=== PATIENT | female | born 1960 | race Caucasian/White ===

== ENCOUNTER 2018-03-02 11:10 | Emergency (ER) | payer OTHER ==
[~2018-03-02] VITALS: Ht 157.5 cm; Wt 46.3 kg
[2018-03-02 11:15] VITALS: BP 87/56
[2018-03-02] MEDS ORDERED: LIDOCAINE VISCOUS 2% 20 ML UDC ONE (11:31)
[2018-03-02] MEDS: NACL 0.9% 1,000 ML IV ONE (11:42)
[2018-03-02] MEDS: metroNIDAZOLE 500 MG/NS PREMIX 100 ML IV ONE (12:00)
[2018-03-02] MEDS: fentaNYL 0.05 MG/ML VIAL IVP ONE (12:00)
[2018-03-02 12:34] LABS: BASOPHILS % (AUTO) 0.1 % (0.0-2.0); HEMATOCRIT 38.9 % (36-48); HEMOGLOBIN 12.8 g/dL (12.0-16.0); LYMPHOCYTES # (AUTO) 0.8 K/uL (2.5-16.5); LYMPHOCYTES % (AUTO) 7.5 % (20.5-51.1); MEAN CORPUSCULAR HEMOGLOBIN 31 pg (27-31); MEAN CORPUSCULAR HGB CONC 33 g/dL (33-37); MEAN CORPUSCULAR VOLUME 92.9 fL (80-94); MONOCYTES # (AUTO) 0.8 K/uL (0.8-1.0); MONOCYTES % (AUTO) 6.7 % (1.7-9.3); NEUTROPHILS # (AUTO) 9.6 K/uL (1.8-7.7); NEUTROPHILS % (AUTO) 85.7 % (42.2-75.2); PLATELET COUNT (AUTO) 279 K/uL (140-450); RED BLOOD CELL COUNT(AUTO) 4.19 MIL/uL (4.20-5.40); RED CELL DISTRIBUTION WIDTH 17.8 % (11.6-13.7); WHITE BLOOD COUNT (AUTO) 11.2 K/uL (4.8-10.8)
[2018-03-02] MEDS: NACL 0.9% 2,000 ML IV SCH (12:35)
[2018-03-02 12:49] LABS: PROTHROMBIN TIME 11.6 secs (10.8-13.4)
[2018-03-02 13:08] LABS: ALBUMIN 2.3 g/dL (3.4-5.0); ANION GAP 17.6 (8-16); CARBON DIOXIDE 23.6 mmol/L (21-32); CREATININE 2.1 mg/dL (0.6-1.3); POTASSIUM 4.2 mmol/L (3.5-5.1); TOTAL BILIRUBIN 0.7 mg/dL (0.0-1.0)
[2018-03-02 13:34] LABS: AMYLASE 76 U/L (25-115); LIPASE 102 U/L (73-393)
[2018-03-02 14:28] VITALS: BP 93/56
[2018-03-02 14:57] LABS: APPEARANCE,URINE CLEAR (CLEAR); BILIRUBIN,URINE 2+ (NEGATIVE); BLOOD, URINE NEGATIVE (NEGATIVE); COLOR,URINE YELLOW (YELLOW); LEUKOCYTE ESTERASE ,URINE NEGATIVE (NEGATIVE); NITRITE, URINE NEGATIVE (NEGATIVE); UGLUCOSE NEGATIVE (NEGATIVE)
== END 2018-03-02 14:26 | disposition short-term general hospital (02) ==
LOC: MED 11:10 → EDBEDREQTM 11:45 → MED 14:26
DX: K56.609 Unspecified intestinal obstruction, unspecified as to partial versus complete obstruction (principal); K43.9 Ventral hernia without obstruction or gangrene; I95.9 Hypotension, unspecified; R94.31 Abnormal electrocardiogram [ECG] [EKG]; J18.1 Lobar pneumonia, unspecified organism; E46 Unspecified protein-calorie malnutrition
CPT/HCPCS: 36415; 43760; 71045; 74176; 80053; 81003; 82150; 82550; 83605; 83690; 83880; 84484; 85025; 85610; 85730; 87040; 87086; 96365; 96375; 99285; J3010; J3490; Q0092

== ENCOUNTER 2018-05-25 10:35 | Inpatient (IN) | payer OTHER ==
[~2018-05-25] VITALS: Ht 157.5 cm; Wt 67.1 kg
[2018-05-25 10:35] VITALS: BP 95/66
--- NOTE | 2018-05-25 10:35 | NUR ---
PT BIBA ALS TO BED 4
--- NOTE | 2018-05-25 10:40 | NUR ---
57yo f biba als from [facility] for with c/o aloc and hypoglycemia. Harness Inspector also report hypotensive but patient sts her blood pressure "runs low". Cap Refill < 3 seconds to all four extremities. Skin color is appriopriate for ethnicity. bilateralt lle pitting edema noted abd pitting edema noted. Pt is aox3 to person, place, and situation, not to time. Clear speech with full sentences. No facial/smile asymmetry noted. LS clear throughout, pt denies any sob. pt denies any pain. ER md conway made aware of patient status. hx--"heart problems" rx--unknown d/t patient's status
[2018-05-25] MEDS ORDERED: DEXTROSE 50% 50 ML SYR IVP ONE ×3 (10:54→11:25)
[2018-05-25] MEDS: DEXTROSE 10% 1,000 ML IV SCH ×4 (11:46→22:44)
[2018-05-25 11:58] LABS: BASOPHILS % (AUTO) 0.3 % (0.0-2.0); EOSINOPHILS % (AUTO) 0.1 % (0.0-4.0); HEMATOCRIT 34.6 % (36-48); HEMOGLOBIN 11.4 g/dL (12.0-16.0); LYMPHOCYTES # (AUTO) 0.7 K/uL (2.5-16.5); LYMPHOCYTES % (AUTO) 7.2 % (20.5-51.1); MEAN CORPUSCULAR HEMOGLOBIN 32 pg (27-31); MEAN CORPUSCULAR HGB CONC 33 g/dL (33-37); MEAN CORPUSCULAR VOLUME 97.5 fL (80-94); MONOCYTES # (AUTO) 0.3 K/uL (0.8-1.0); MONOCYTES % (AUTO) 3.2 % (1.7-9.3); NEUTROPHILS % (AUTO) 89.2 % (42.2-75.2); PLATELET COUNT (AUTO) 161 K/uL (140-450); RED BLOOD CELL COUNT(AUTO) 3.55 MIL/uL (4.20-5.40); RED CELL DISTRIBUTION WIDTH 15.5 % (11.6-13.7); WHITE BLOOD COUNT (AUTO) 10.1 K/uL (4.8-10.8)
--- NOTE | 2018-05-25 12:00 | NUR ---
lab at bedside
--- NOTE | 2018-05-25 12:06 | NUR ---
ultasound at bedside
--- NOTE | 2018-05-25 12:10 | NUR ---
lab unable to collect specimen, orion mccallum made aware
[2018-05-25] MEDS ORDERED: INSULIN LISPRO SLIDING SCALE 100 UNITS/ML VIAL SUBQ PRN (14:10)
[2018-05-25] MEDS ORDERED: NACL 0.9% 1,000 ML IV SCH (14:19)
--- NOTE | 2018-05-25 14:23 | NUR ---
unable to obtain medications due to patient's condition
--- NOTE | 2018-05-25 14:40 | NUR ---
# 14 FR Urinary catheter inserted utilizing sterile technique. Immediate return of 100 ml clear marco urine noted. Urine sample collected and sent to lab. Pt tolerated procedure well .
[2018-05-25 14:49] LABS: ALBUMIN 1.2 g/dL (3.4-5.0); ASPARTATE AMINOTRANSFERASE 85 U/L (15-37); CARBON DIOXIDE 19.2 mmol/L (21-32); CHLORIDE 104 mmol/L (98-107); CREATININE 1.2 mg/dL (0.6-1.3); GFR ARICAN-AMERICAN 59 mL/min (>90); GLUCOSE 154 mg/dL (74-106); TOTAL BILIRUBIN 0.6 mg/dL (0.0-1.0); UREA NITROGEN, BLOOD 22 mg/dL (7-18)
[2018-05-25 14:55] LABS: APPEARANCE,URINE CLEAR (CLEAR); BLOOD, URINE NEGATIVE (NEGATIVE); COLOR,URINE YELLOW (YELLOW); LEUKOCYTE ESTERASE ,URINE NEGATIVE (NEGATIVE); NITRITE, URINE NEGATIVE (NEGATIVE); UGLUCOSE TRACE (NEGATIVE)
[2018-05-25 15:03] LABS: ANION GAP 14.7 (8-16); SODIUM SERUM 135 mmol/L (136-145)
[2018-05-25 15:05] LABS: BARBITURATE, URINE NEG. ng/ml (NEG <=200); BENZODIAZEPINE, URINE NEG. ng/mL (NEG <=200); CANNABINOID, URINE NEG. ng/mL (NEG <=50); COCAINE, URINE NEG. ng/mL (NEG <=300); OPIATE, URINE POS. ng/mL (NEG <=2000); PHENCYCLIDINE SCREEN,URINE NEG. ng/mL (NEG <=25)
--- NOTE | 2018-05-25 15:05 | NUR ---
Patient will be admitted to care of dr johnson. Admited to tele. Will go to room 107a. Belongings list completed. Report to alexei alfaro.
--- NOTE | 2018-05-25 15:05 | NUR ---
RECEIVED BEDSIDE REPORT FROM ER NURSE. PATIENT IS AWAKE AND ALERTX1-2. NO SIGNS OF DISTRESS ON 2L NC. IV ON R WRIST 22G INFUSING DEXTROSE AT 60ML/HR. CLEAN, DRY AND INTACT. PATIENT HAS +4 PITTING EDEMA THROUGHOUT BODY. SKIN IS INTACT. PATIENT IS BEDBOUND. INCONTINENT. SON AND SISTER AT BEDSIDE. NOCOMPLAINTS AT THIS TIME. BED IN LOW POSITION. CALL LIGHT WITHIN REACH. WILL CONTINUE TO MONITOR
[2018-05-25 15:16] LABS: POTASSIUM 2.9 mmol/L (3.5-5.1)
[2018-05-25 15:18] LABS: BILIRUBIN,URINE NEGATIVE (NEGATIVE)
[2018-05-25 15:30] VITALS: BP 131/75
[2018-05-25] MEDS: DEXTROSE 50% 50 ML SYR IVP PRN ×3 (15:41→19:33)
[2018-05-25 16:27] LABS: HYALINE CASTS, URINE 0-10 /LPF (None Seen); RBC,URINE 3-10 (FEW) /HPF (0-5); WBC,URINE 0-5 (RARE) /HPF (0-5)
[2018-05-25] MEDS: BLOOD GLUCOSE MONITORING 1 DEV DEV FS SCH ×2 (16:30→21:04)
--- NOTE | 2018-05-25 17:00 | NUR ---
PATIENT BS RECHECK WAS 123. SON GAVE APPLE JUICE AND ORANGE JUICE. NO SIGNS OF DISTRESS. WILL CONTINUE TO MONITOR
[2018-05-25] MEDS ORDERED: POTASSIUM CHLORIDE 20% 40 MEQ/15 ML UDC GT SCH (18:30)
--- NOTE | 2018-05-25 19:00 | NUR ---
NEW IV ON L HAND 22G INFUSING POTASSIUM AT 20ML/HR. CLEAN, DRY AND INTACT. WILL CONTINUE TO MONITOR THE PATIENT.
--- NOTE | 2018-05-25 19:10 | NUR ---
GAVE BEDSIDE REPORT TO TREASURER NURSE. PATIENT MAY NEED TO GO TO ICU IF BS CONTINUES TO BE UNCONTROLLED AND B/P DROPS.
--- NOTE | 2018-05-25 19:10 | NUR ---
1700 BLOOD SUGARS ARE UNCONTROLLED. ALREADY ADMINISTERED 3 D50. ESTEFANY LAGUNAS NURSE TO CALL
[2018-05-25] MEDS: KCL 20 MEQ/WATER INJ PREMIX 100 ML IV SCH ×2 (19:13→21:04)
--- NOTE | 2018-05-25 19:30 | NUR ---
RECEIVED REPORT FROM DAY SHIFT RN FOR CONTINUITY OF CARE. PT IS LETHARGIC, ON 2L O2. PT SKIN IS INTACT. PT HAS 22G IV TO TO RIGHT WRIST AND IV TO LEFT HAND, ASYMPTOMATIC, INTACT AND PATENT. DISCUSSED PLAN OF CARE WITH PT SON, PT SON VERBALIZED UNDERSTANDING. BLOOD PRESSURE IS LOW AT THE MOMENT, OTHER VITAL SIGNS WITHIN NORMAL LIMITS. WILL PAGE [address] FREIGHT DOCTOR. NO SIGNS OF DISTRESS NOTED AT THIS TIME. BED IN LOWEST POSITION, BED ALARM ON. CALL LIGHT WITHIN REACH, WILL CONTINUE TO MONITOR.
--- NOTE | 2018-05-25 19:45 | NUR ---
SPOKE WITH DR BECKER, EXPLAINED SITUATION AND GAVE PT LATEST BLOOD SUGAR WHICH IS NOW 146.
[2018-05-25 20:00] VITALS: BP 88/47
[2018-05-25] MEDS: FUROSEMIDE 20 MG/2 ML VIAL IVP SCH (21:00)
[2018-05-25] MEDS: ACETAMINOPHEN 325 MG TAB PO PRN (21:03)
[2018-05-25] MEDS: SODIUM BICARBONATE 650 MG TAB PO SCH (21:03)
--- NOTE | 2018-05-25 21:05 | NUR ---
ADMINISTERED SCHEDULED MEDICATIONS, PT TOLERATED WELL. HELD LASIX BECAUSE BLOOD PRESSURE IS LOW, AND HELD INSULIN COVERAGE FOR BLOOD SUGAR OF 159 BECAUSE OF PT PERSISTENT HYPOGLYCEMIA JUST AN HOUR AGO.
--- NOTE | 2018-05-25 21:05 | NUR ---
TYLENOL ADMINISTERED WELL BECAUSE TEMPERATURE IS NOW 100.4.
[2018-05-25 21:17] LABS: MAGNESIUM 1.6 mg/dL (1.8-2.4); POTASSIUM 3.2 mmol/L (3.5-5.1)
[2018-05-25 21:33] LABS: PROTHROMBIN TIME 17.8 secs (10.8-13.4)
--- NOTE | 2018-05-25 21:35 | NUR ---
SPOKE TO DR BECKER REGARDING LACTIC ACID 8.3, TEMPERATURE OF 100.4, AND MAGNESIUM LEVEL OF 1.6, DR ORDERED ZOSYN 3.375 Q6H AND 2G OF MAG SULFATE IVPB.
[2018-05-25] MEDS ORDERED: MAG SULF 2000 MG/WATER PREMIX 50 ML IV ONE (22:00)
[2018-05-25] MEDS ORDERED: DEXTROSE 10% 1,000 ML IV ONE (22:17)
[2018-05-26] VITALS: BP 90/51
--- NOTE | 2018-05-26 | NUR ---
BLOOD PRESSURE DECREASED, OTHER VITAL SIGNS WITHIN NORMAL LIMITS. BLOOD SUGAR IS NOW AT 70. HELPED PT DRINK SOME JUICE, PT TOLERATED WELL, NO SWALLOWING PROBLEMS NOTED. PT STABLE, NO SIGNS OF DISTRESS NOTED AT THIS TIME. BED IN LOWEST POSITION, BED ALARM ON. CALL LIGHT WITHIN REACH, WILL CONTINUE TO MONITOR.
[2018-05-26] MEDS ORDERED: PIPERACILLIN/TAZOBACTAM 3.375 GM VIAL IV ONE ×2 (00:33→05:52)
[2018-05-26] MEDS: PIPER/TAZO 3.375GM/D5W PREMIX 50 ML IV SCH ×4 (00:42→19:04)
[2018-05-26] MEDS ORDERED: ALBUMIN HUMAN 25% 200 ML IV SCH (01:00)
--- NOTE | 2018-05-26 02:15 | NUR ---
HELPED PT DRINK A LITTLE MORE JUICE.
--- NOTE | 2018-05-26 03:56 | NUR ---
VITAL SIGNS WITHIN NORMAL LIMITS. BLOOD SUGAR IS GOOD AT 108 THIS MOMENT. PT STABLE, NO SIGNS OF DISTRESS NOTED AT THIS TIME. BED IN LOWEST POSITION, BED ALARM ON. CALL LIGHT WITHIN REACH, WILL CONTINUE TO MONITOR.
[2018-05-26 04:00] VITALS: BP 94/62
[2018-05-26] MEDS: BLOOD GLUCOSE MONITORING 1 DEV DEV FS SCH ×4 (06:06→21:05)
--- NOTE | 2018-05-26 06:07 | NUR ---
PT BLOOD SUGAR MORE STABLE NOW AT 101
--- NOTE | 2018-05-26 07:10 | NUR ---
RECEIVED PATIENT REPORT AT BEDSIDE. PATIENT IS LETHARGIC. PATIENT IS ABLE TO OPEN HER EYES AND GRUNTS BUT UNABLE TO VERBALIZE NEEDS. PATIENT ON 2L O2. O2 SAT 100 PERCENT AT THIS TIME. PATIENT ON TELE MONITORING . BED LOWERED WITH CALL LIGHT WITHIN REACH. WILL CONTINUE TO MONITOR
--- NOTE | 2018-05-26 07:28 | NUR ---
ENDORSED PT TO DAY SHIFT RN FOR CONTINUITY OF CARE. PT IN STABLE CONDITION.
--- NOTE | 2018-05-26 07:45 | NUR ---
PATIENT HAS BEEN SCREENED AND CATEGORIZED HIGH NUTRITION RISK. PATIENT WILL BE SEEN WITHIN 1-2 DAYS OF ADMISSION. 05/26/18 05/27/18 RAQUEL EMANUEL MBA, RD
[2018-05-26 08:00] VITALS: BP 95/56
--- NOTE | 2018-05-26 08:00 | NUR ---
BLOOD SUGAR CHECKED 151. PATIENT'S SON AT BEDSIDE. SON REQUESTED TO HAVE HER MOM MEDICATED FOR PAIN. PAIN MEDICATION ADMINISTERED WITH APPLESAUCE. PATIENT ABLE TO SWALLOW SLOWLY. PER SON, PATIENT'S BP NORMALLY RUNS LOW
[2018-05-26] MEDS: HYDROcodone/APAP 5/325 MG 1 TAB TAB PO PRN (08:07)
[2018-05-26] MEDS: FUROSEMIDE 20 MG/2 ML VIAL IVP SCH ×2 (09:00→20:58)
[2018-05-26] MEDS ORDERED: KCL 20 MEQ/WATER INJ PREMIX 100 ML IV SCH (10:30)
[2018-05-26] MEDS: SODIUM BICARBONATE 650 MG TAB PO SCH ×2 (10:52→21:09)
[2018-05-26] MEDS: LACTULOSE 20 GM/30 ML UDC PO SCH ×3 (10:53→18:16)
--- NOTE | 2018-05-26 10:53 | NUR ---
PATIENT RESTLESS AND RESISTING NGT INSERTION. MADE DR GRACIA AWARE. ABLE TO ADMINISTER SCHEDULED MEDICATIONS WITH APPLESAUCE
[2018-05-26 11:37] LABS: ALBUMIN 1.9 g/dL (3.4-5.0); ANION GAP 18.1 (8-16); CARBON DIOXIDE 17.6 mmol/L (21-32); TOTAL BILIRUBIN 0.8 mg/dL (0.0-1.0)
[2018-05-26 11:41] LABS: POTASSIUM 2.7 mmol/L (3.5-5.1)
--- NOTE | 2018-05-26 11:50 | NUR ---
PATIENT GIVEN BED BATH. PATIENT HAD A BM. STOOL SMALL IN AMOUNT, SOFT AND BROWN IN COLOR. PATIENT CLEANED AND REPOSITIONED FOR COMFORT
[2018-05-26 12:00] VITALS: BP 97/66
--- NOTE | 2018-05-26 12:24 | NUR ---
DOUBLE LUMEN PICC LINE INSERTED IN THE RIGHT UPPER ARM. PATIENT ASLEEP. NO S/S OF DISTRESS NOTED
[2018-05-26] MEDS ORDERED: PIPER/TAZO 3.375GM/D5W PREMIX 50 ML IV SCH (13:00)
[2018-05-26 13:24] LABS: MAGNESIUM 1.7 mg/dL (1.8-2.4); PHOSPHORUS 2.3 mg/dL (2.5-4.9)
[2018-05-26] MEDS: DEXTROSE 10% 1,000 ML IV SCH (13:27)
--- NOTE | 2018-05-26 14:18 | NUR ---
05/26/18 RD INITIAL ASSESSMENT COMPLETED PLEASE REFER TO NUTRITION ASSESSMENT UNDER CARE ACTIVITY FOR ESTIMATED NUTRITIONAL NEEDS. RD RECOMMENDATIONS: 1- RECOMMEND CONTINUE 60G CCHO DIET 2- WHEN NGT INSERT IS SUCCESSFUL, RECOMMEND TF GLUCERNA1.2 @ 50MLS/HR. START @30 AND INCREASE TOLERATED BY 10MLS/HR Q8HRS TO REACH GOAL AND HELP MEET 100% ESTIMATED NEEDS. 3- PT IS NOT A GOOD CANDIDATE FOR DIET EDUCATION 4- RD F/U 2-3 DAYS; HIGH RISK RAQUEL EMANUEL MBA, RD
[2018-05-26 16:00] VITALS: BP 92/51
[2018-05-26 16:05] LABS: BASOPHILS % (AUTO) 0.2 % (0.0-2.0); EOSINOPHILS # (AUTO) 0.3 K/uL (0-0.4); HEMATOCRIT 31.4 % (36-48); HEMOGLOBIN 10.4 g/dL (12.0-16.0); LYMPHOCYTES # (AUTO) 0.8 K/uL (2.5-16.5); MEAN CORPUSCULAR HEMOGLOBIN 32 pg (27-31); MEAN CORPUSCULAR HGB CONC 33 g/dL (33-37); MEAN CORPUSCULAR VOLUME 95.9 fL (80-94); MONOCYTES # (AUTO) 0.2 K/uL (0.8-1.0); NEUTROPHILS # (AUTO) 8.3 K/uL (1.8-7.7); NEUTROPHILS % (AUTO) 86.8 % (42.2-75.2); PLATELET COUNT (AUTO) 101 K/uL (140-450); RED BLOOD CELL COUNT(AUTO) 3.27 MIL/uL (4.20-5.40); RED CELL DISTRIBUTION WIDTH 15.2 % (11.6-13.7); WHITE BLOOD COUNT (AUTO) 9.6 K/uL (4.8-10.8)
--- NOTE | 2018-05-26 17:00 | NUR ---
INSULIN COVERAGE NOT ADMINISTERED. PATIENT REFUSING TO EAT
--- NOTE | 2018-05-26 19:30 | NUR ---
PATIENT REPORT GIVEN AT BEDSIDE TO THE ORIENTAL RUG REPAIRER NURSE
--- NOTE | 2018-05-26 19:30 | NUR ---
RECEIVED PT IN STABLE CONDITION FROM AM NURSE. PT IS ASLEEP.BUT WAKES UP NAME WAS CALLED. TALK AT TIMES. CONFUSED. WITH O22L/NC. NO DISTRESS NOTED. ON TELE MONITOR -SR. BEDREST. WITH IVF INFUSING WELL ON THE RT UPPER ARM PICC LINE. CLEAR AND PATENT. BED ON LOW POSITION, CALL LIGHT WITHIN EASY REACH. FREQUENT ROUNDS NEEDED. WILL CONTINUE TO MONITOR.
[2018-05-26 19:51] VITALS: BP 90/61
--- NOTE | 2018-05-26 21:05 | NUR ---
BLOOD SUGAR WAS CHECKED RESULT 185. INSULIN HOLD FOR PT REFUSED TO EAT. WILL CONTINUE TO MONITOR.
[2018-05-26] MEDS: POTASSIUM CHLORIDE 20% 40 MEQ/15 ML UDC GT SCH (21:09)
--- NOTE | 2018-05-26 21:50 | NUR ---
PT BLOOD CULTURE POSITIVE FOR GRAM NEGATIVE RODS. PAGED DR. GRACIA AND DR. KERR NURSE REVIEWER. CALLED BACK AFTER SECOND CALL. NO NEW ORDER. HE SAID PT ALREADY COVERED WITH ZOSYN .
--- NOTE | 2018-05-26 22:30 | NUR ---
PT ASLEEP. NO S/S OF ANY DISCOMFORT NOR DISTRESS NOTED.
[2018-05-27 00:31] VITALS: BP 95/63
--- NOTE | 2018-05-27 01:00 | NUR ---
PT HAS BEEN REPOSITIONED FOR COMFORT. HAD A LARGE BM NOTED. CLEANED AND KEPT DRY
[2018-05-27] MEDS: PIPER/TAZO 3.375GM/D5W PREMIX 50 ML IV SCH ×4 (01:27→18:21)
--- NOTE | 2018-05-27 03:00 | NUR ---
HAS BEEN REPOSITIONED FOR COMFORT . HAD TOTAL 2 LARGE BM .
[2018-05-27 04:45] VITALS: BP 98/60
[2018-05-27] MEDS: BLOOD GLUCOSE MONITORING 1 DEV DEV FS SCH ×4 (06:00→20:21)
--- NOTE | 2018-05-27 06:00 | NUR ---
BLOOD SUGAR WAS CHECKED THIS AM 126. STILL WITH IV D10 60 ML /HR.
--- NOTE | 2018-05-27 07:00 | NUR ---
DR. TORRES CAME AND SEEN PT WITH LABS ORDER FOR AM.
--- NOTE | 2018-05-27 07:10 | NUR ---
RECEIVED PATIENT REPORT AT BEDSIDE. PATIENT IS LETHARGIC. PATIENT IS ABLE TO OPEN HER EYES AND MOANS WHEN TOUCHED BUT UNABLE TO VERBALIZE NEEDS. PATIENT ON 2L O2. O2 SAT 100 PERCENT AT THIS TIME. PATIENT ON TELE MONITORING . BED LOWERED WITH CALL LIGHT WITHIN REACH. WILL CONTINUE TO MONITOR
--- NOTE | 2018-05-27 07:15 | NUR ---
ENDORSED PT IN STABLE CONDITION TO AM NURSE.
[2018-05-27] MEDS: DEXTROSE 10% 1,000 ML IV SCH (07:30)
[2018-05-27 07:57] VITALS: BP 117/74
[2018-05-27 08:00] LABS: BASOPHILS % (AUTO) 0.1 % (0.0-2.0); EOSINOPHILS % (AUTO) 0.1 % (0.0-4.0); HEMATOCRIT 29.1 % (36-48); HEMOGLOBIN 10.1 g/dL (12.0-16.0); LYMPHOCYTES % (AUTO) 7.1 % (20.5-51.1); MEAN CORPUSCULAR HEMOGLOBIN 33 pg (27-31); MEAN CORPUSCULAR HGB CONC 35 g/dL (33-37); MEAN CORPUSCULAR VOLUME 94.3 fL (80-94); MONOCYTES # (AUTO) 0.5 K/uL (0.8-1.0); MONOCYTES % (AUTO) 3.2 % (1.7-9.3); NEUTROPHILS # (AUTO) 12.7 K/uL (1.8-7.7); NEUTROPHILS % (AUTO) 89.5 % (42.2-75.2); PLATELET COUNT (AUTO) 78 K/uL (140-450); RED BLOOD CELL COUNT(AUTO) 3.09 MIL/uL (4.20-5.40); RED CELL DISTRIBUTION WIDTH 14.7 % (11.6-13.7); WHITE BLOOD COUNT (AUTO) 14.2 K/uL (4.8-10.8)
--- NOTE | 2018-05-27 08:00 | NUR ---
PATIENT REFUSING TO TAKE ANYTHING BY MOUTH
[2018-05-27 08:10] LABS: ALBUMIN 1.5 g/dL (3.4-5.0); ANION GAP 14.5 (8-16); CARBON DIOXIDE 20.3 mmol/L (21-32); CREATININE 0.8 mg/dL (0.6-1.3); TOTAL BILIRUBIN 1.4 mg/dL (0.0-1.0)
[2018-05-27 08:17] LABS: POTASSIUM 2.8 mmol/L (3.5-5.1)
[2018-05-27] MEDS: FUROSEMIDE 20 MG/2 ML VIAL IVP SCH ×2 (09:00→21:08)
--- NOTE | 2018-05-27 09:01 | NUR ---
12 FR NGT INSERTED IN THE RIGHT NARES. MADE DR GRACIA AWARE. TO PUT ORDERS FOR XRAY TO VERIFY PLACEMENT
--- NOTE | 2018-05-27 09:13 | NUR ---
TEMP RECHECKED ORALLY 99.4. NO S/S OF DISTRESS NOTED Addendum: 05/27/18 at 0913 by Arsenio Lindsey RN WRONG PATIENT
[2018-05-27] MEDS ORDERED: MAG SULF 2000 MG/WATER PREMIX 50 ML IV SCH (11:30)
[2018-05-27] MEDS ORDERED: KCL 20 MEQ/WATER INJ PREMIX 200 ML IV SCH (11:30)
[2018-05-27] MEDS: LACTULOSE 20 GM/30 ML UDC PO SCH ×3 (11:44→17:29)
[2018-05-27] MEDS: POTASSIUM CHLORIDE 20% 40 MEQ/15 ML UDC GT SCH ×2 (11:44→21:09)
[2018-05-27] MEDS: SODIUM BICARBONATE 650 MG TAB PO SCH ×2 (11:44→21:09)
[2018-05-27 12:00] VITALS: BP 115/82
[2018-05-27] MEDS: POTASSIUM CHL 20MEQ/D5-NS 1,000 ML IV SCH (13:37)
--- NOTE | 2018-05-27 15:45 | NUR ---
PATIENT AWAKE AND MORE ALERT. PATIENT VERBALIZED THAT SHE NEEDED TO VOID. PATIENT SON PRESENT AT BEDSIDE. PATIENT PLACED ON A BED NICE. PATIENT HAD A BM. STOOL SMALL IN SIZE AND AMOUNT AND LOOSE. PATIENT CLEANED AND REPOSITIONED FOR COMFORT. WILL CONTINUE TO MONITOR
[2018-05-27] MEDS: HYDROcodone/APAP 5/325 MG 1 TAB TAB PO PRN (15:56)
[2018-05-27 16:00] VITALS: BP 87/53
[2018-05-27] MEDS: MUPIROCIN CA NASAL 2% 1GM TUBE NS SCH (17:29)
[2018-05-27] MEDS: CHLORHEXADINE GLUC 2% CLOTH TP SCH (17:31)
[2018-05-27] MEDS: DEXTROSE 50% 50 ML SYR IVP PRN (17:58)
--- NOTE | 2018-05-27 18:24 | NUR ---
BLOOD SUGAR RECHECKED 118. NO S/S OF DISTRESS. PATIENT AWAKE AND ALERT
[2018-05-27] MEDS ORDERED: VANCOMYCIN PER PHARMACY MC PRN ×2 (19:15)
--- NOTE | 2018-05-27 19:30 | NUR ---
PATIENT REPORT GIVEN AT BEDSIDE. PATIENT ENDORSED IN STABLE CONDITION
--- NOTE | 2018-05-27 19:31 | NUR ---
REPORT RECEIVED FROM AM NURSE AT BEDSIDE. PT IN STABLE CONDITION. AAOX2-3. INTRODUCED SELF TO PT AND FAMILY AND BOARD UPDATED. IV SITE PATENT AND INTACT L HAND 24G SL. PT ALSO HAS A PICC LINE ON RIGHT UPPER ARM DOUBLE LUMEN RUNNING D5NS WITH 20MEQ KCL @75ML/HR. SKIN WARM, DRY, AND INTACT BUT THERE IS BRUISING IN THE BILATERAL FA, SWELLING ON BOTH LOWER LEGS, AND SACRAL REDNESS. PT ON 2L VIA NC. NG TUBE WAS PLACE BY AM SHIFT. TUBE FEEDING GOING THROUGH THE FEEDING AT 30ML/HR. BED LOCKED IN LOW POSITION. CALL ORELLANA WITHIN REACH.
[2018-05-27 20:00] VITALS: BP 104/54
--- NOTE | 2018-05-27 20:20 | NUR ---
BS 62. NO INSULIN COVERAGE NEEDED.
[2018-05-27] MEDS ORDERED: VANCOMYCIN 1,000 MG in NACL 0.9% 250 ML IV SCH (21:00)
[2018-05-27] MEDS: RIFAXIMIN 550 MG TAB PO SCH (21:00)
[2018-05-27] MEDS ORDERED: MEROPENEM 500 MG VIAL IV ONE (21:02)
--- NOTE | 2018-05-27 21:05 | NUR ---
MERREM GIVEN IVPB. LASIX GIVEN IVP. PT TOLERATED WELL. POTASSIUM GIVEN THROUGH NG TUBE. PT VOMITED SOME OF THE POTASSIUM BACK UP. DUE TO THE VOMITING BICARB GIVEN PO. PT TOLERATED PO WELL. Addendum: 05/28/18 at 0304 by Brendon Pratt RN XIFAXAN NOT GIVEN. NEW MED WAS NOT IN CASSETTE.
[2018-05-27] MEDS: MEROPENEM 500 MG in NACL 0.9% 50 ML IV SCH (21:09)
[2018-05-27] MEDS ORDERED: VANCOMYCIN 1,000 MG VIAL ONE (21:42)
--- NOTE | 2018-05-27 21:45 | NUR ---
RUSLAN ADAMS. PT TOLERATED WELL.
[2018-05-28] VITALS: BP 84/41
[2018-05-28] MEDS: HYDROcodone/APAP 5/325 MG 1 TAB TAB PO PRN ×3 (00:21→22:12)
--- NOTE | 2018-05-28 00:21 | NUR ---
NORCO GIVEN FOR PAIN 03/18. PT TOLERATED WELL.
[2018-05-28] MEDS: POTASSIUM CHL 20MEQ/D5-NS 1,000 ML IV SCH ×2 (01:15→14:36)
--- NOTE | 2018-05-28 02:00 | NUR ---
BOND UNDERWRITER'S NOTICED NG OUT OF PLACE. WILL PLACE TUBE TO ORIGINAL POSITION.
--- NOTE | 2018-05-28 03:20 | NUR ---
NG TUBE PLACED BACK TO ORIGINAL BEN BY LILY STERLING. PLACEMENT THROUGH AUSCULTATION. XRAY FOR PLACEMENT ORDERED.
[2018-05-28 04:00] VITALS: BP 91/54
[2018-05-28] MEDS ORDERED: MEROPENEM 500 MG VIAL IV ONE ×2 (05:29→21:56)
--- NOTE | 2018-05-28 05:30 | NUR ---
PUJA ADAMS. PT TOLERATING WELL.
[2018-05-28] MEDS: MEROPENEM 500 MG in NACL 0.9% 50 ML IV SCH ×3 (05:31→21:00)
[2018-05-28] MEDS: BLOOD GLUCOSE MONITORING 1 DEV DEV FS SCH ×4 (05:50→21:00)
--- NOTE | 2018-05-28 05:50 | NUR ---
BS 105. NO INSULIN COVERAGE NEEDED.
--- NOTE | 2018-05-28 05:55 | NUR ---
CHEST XRAY RESULTS IN. FINDINGS SAY TO ADVANCE THE NG TUBE ANOTHER 5 CM. NG TUBE ADVANCED. PT TOLERATED WELL. Addendum: 05/28/18 at 0612 by Brendon Pratt RN TUBE FEEDING RESTARTED.
--- NOTE | 2018-05-28 07:20 | NUR ---
REPORT GIVEN TO AM NURSE. PT IN STABLE CONDITION.
--- NOTE | 2018-05-28 07:21 | NUR ---
RECEIVED REPORT FROM THE WASHER ENGINEER HELPER NURSE AT BEDSIDE FOR CONTINUITY OF CARE. PT IS AWAKE AND ORIENTED. INTRODUCED MYSELF AND UPDATED THE BOARD. PT STATES SHE IS WET AND IS SOILED. V/S WITHIN NORMAL LIMITS. PT IS AN NG TUBE, GLUCERNA AT 30ML, CONTINUOUS FEEDING WITH 30ML OF H20 Q6. PT ALSO HAS AN NG TUBE, O2 AT 2L. SKIN INTACT. SOME REDNESS IN THE [place] AND SACRAL AREA D/T INCONTINENCE, BOWEL AND URINE. PT HAS AN IV ON L HAND 24G SL AND A PICC LINE ON RITCHIE-DOUBLE LUMEN- D5 NS KCL 20MEQ AT 100ML. PT IS BEDBOUND. EDEMA IN BLE, PITTING 1-2. CHANGED PT. HAD BM AND URINE. WILL CONTINUE TO MONITOR PT.
[2018-05-28 07:43] LABS: BASOPHILS % (AUTO) 0.3 % (0.0-2.0); HEMATOCRIT 27.2 % (36-48); HEMOGLOBIN 9.2 g/dL (12.0-16.0); LYMPHOCYTES # (AUTO) 1.1 K/uL (2.5-16.5); LYMPHOCYTES % (AUTO) 7.3 % (20.5-51.1); MEAN CORPUSCULAR HEMOGLOBIN 32 pg (27-31); MEAN CORPUSCULAR HGB CONC 34 g/dL (33-37); MEAN CORPUSCULAR VOLUME 94.8 fL (80-94); MONOCYTES # (AUTO) 0.4 K/uL (0.8-1.0); MONOCYTES % (AUTO) 2.6 % (1.7-9.3); NEUTROPHILS # (AUTO) 13.3 K/uL (1.8-7.7); NEUTROPHILS % (AUTO) 89.8 % (42.2-75.2); PLATELET COUNT (AUTO) 47 K/uL (140-450); RED BLOOD CELL COUNT(AUTO) 2.87 MIL/uL (4.20-5.40); RED CELL DISTRIBUTION WIDTH 15.4 % (11.6-13.7); WHITE BLOOD COUNT (AUTO) 14.9 K/uL (4.8-10.8)
[2018-05-28 08:00] VITALS: BP 105/60
[2018-05-28 08:30] LABS: ALBUMIN 1.2 g/dL (3.4-5.0); ANION GAP 10.6 (8-16); CARBON DIOXIDE 22.6 mmol/L (21-32); CREATININE 0.9 mg/dL (0.6-1.3); MAGNESIUM 2.4 mg/dL (1.8-2.4); POTASSIUM 4.2 mmol/L (3.5-5.1); TOTAL BILIRUBIN 1.2 mg/dL (0.0-1.0)
[2018-05-28] MEDS: POTASSIUM CHLORIDE 20% 40 MEQ/15 ML UDC GT SCH (09:19)
[2018-05-28] MEDS: LACTULOSE 20 GM/30 ML UDC PO SCH ×3 (09:19→22:09)
[2018-05-28] MEDS: FUROSEMIDE 20 MG/2 ML VIAL IVP SCH ×2 (09:20→22:12)
[2018-05-28] MEDS: SODIUM BICARBONATE 650 MG TAB PO SCH ×2 (09:20→22:11)
[2018-05-28] MEDS: RIFAXIMIN 550 MG TAB PO SCH ×2 (09:20→22:23)
--- NOTE | 2018-05-28 09:35 | NUR ---
CRUSHED MEDS AND PREPPED MEDS FOR NG TUBE FEEDING. CHECKED FOR RESIDUAL, NO RESIDUAL BUT SOME RESISTANCE. STARTED TO GIVE MEDS TO PT, PT STARTED GAGGING AND SAID SHE FELT LIKE "THROWING UP". STOPPED IN MIDDLE OF ADMINISTRATION. WILL CALL [facility] AND WILL SEE IF I CAN GET AN ORDER OF CXRY FOR PLACEMENT, STAT. MAL GRESHAM.
--- NOTE | 2018-05-28 10:10 | NUR ---
DR. GRACIA RETURNED MY CALL. OK TO ORDER STAT CXRY. CALLED RADIOLOGY TO COME AND GET STAT XRY.
--- NOTE | 2018-05-28 10:20 | NUR ---
XRY TECHS ARE HERE FOR THE CHEST XRY. WILL AWAIT RESULTS.
[2018-05-28] MEDS: VANCOMYCIN 500 MG in DEXTROSE 5% 100 ML IV SCH ×2 (11:06→23:48)
--- NOTE | 2018-05-28 11:17 | NUR ---
CONFIRMED THE NG TUBE IS IN THE STOMACH. ADMINISTERED ANOTHER 20ML'S OF MEDS. SHE STATED SHE FEELS LIKE THROWING UP. ADMINISTERED VANCO SCHEDULED. WILL CONTINUE TO MONITOR PT. WILL CONTINUE TO MONITOR PT.
[2018-05-28 12:00] VITALS: BP 99/66
--- NOTE | 2018-05-28 12:33 | NUR ---
HOLDING LACTULOSE. PT IS HAVING DIARRHEA X 3 ALREADY THIS MORNING AND HER AMMONIA LEVELS ARE NORMAL 23. WILL NOTIFY
--- NOTE | 2018-05-28 12:59 | NUR ---
CM NOTE INITIAL REVIEW FAXED TO [facility] [phone] WONG # [phone]
--- NOTE | 2018-05-28 14:32 | NUR ---
PT KEEPS CALLING OUT FOR ASSISTANCE. I GO THERE. SHE'S NOT ABLE TO VERBALIZE WHAT SHE WANTS. SHE KEEPS SAYING..."I NEED FOR YOU TO..." BUT STOPS THERE. SHE JUST KEEPS REPEATING. PT IS CONFUSED. WILL CONTINUE TO MONITOR PT.
[2018-05-28 16:00] VITALS: BP 114/66
--- NOTE | 2018-05-28 16:10 | NUR ---
PT STILL CALLING OUT "HELLO". WHEN ASKED WHAT SHE NEEDED, UNABLE TO VERBALIZE. WILL CONTINUE TO MONITOR PT.
[2018-05-28] MEDS: MUPIROCIN CA NASAL 2% 1GM TUBE NS SCH (16:19)
[2018-05-28] MEDS: CHLORHEXADINE GLUC 2% CLOTH TP SCH (16:20)
--- NOTE | 2018-05-28 18:30 | NUR ---
PT ASKED ME TO CALL HER SON, PRIYANKA. CALLED. LEFT MESSAGE ON VM. NOTIFIED PT THAT I HAD LEFT HIM A MESSAGE.
--- NOTE | 2018-05-28 19:33 | NUR ---
ENDORSED PT TO THE EMS DRIVER NURSE AT BEDSIDE FOR CONTINUITY OF CARE. PT IS IN STABLE CONDITION.
[2018-05-28 20:29] VITALS: BP 106/55
[2018-05-29 00:07] VITALS: BP 98/67
[2018-05-29] MEDS ORDERED: ZOLPIDEM 5 MG TAB PO PRN (02:25)
[2018-05-29] MEDS: ACETAMINOPHEN 325 MG TAB PO PRN (02:54)
[2018-05-29] MEDS: MEROPENEM 500 MG in NACL 0.9% 50 ML IV SCH ×3 (04:22→20:34)
[2018-05-29 04:30] VITALS: BP 101/62
[2018-05-29] MEDS: BLOOD GLUCOSE MONITORING 1 DEV DEV FS SCH ×4 (06:12→20:41)
[2018-05-29 07:12] LABS: BASOPHILS % (AUTO) 0.1 % (0.0-2.0); HEMATOCRIT 29.6 % (36-48); HEMOGLOBIN 9.9 g/dL (12.0-16.0); LYMPHOCYTES # (AUTO) 1.2 K/uL (2.5-16.5); LYMPHOCYTES % (AUTO) 9.4 % (20.5-51.1); MEAN CORPUSCULAR HEMOGLOBIN 32 pg (27-31); MEAN CORPUSCULAR HGB CONC 34 g/dL (33-37); MONOCYTES # (AUTO) 0.6 K/uL (0.8-1.0); NEUTROPHILS # (AUTO) 10.5 K/uL (1.8-7.7); NEUTROPHILS % (AUTO) 85.5 % (42.2-75.2); PLATELET COUNT (AUTO) 43 K/uL (140-450); RED BLOOD CELL COUNT(AUTO) 3.12 MIL/uL (4.20-5.40); RED CELL DISTRIBUTION WIDTH 15.2 % (11.6-13.7); WHITE BLOOD COUNT (AUTO) 12.2 K/uL (4.8-10.8)
--- NOTE | 2018-05-29 07:15 | NUR ---
RECEIVED REPORT FROM THE GEOPHYSICAL SUPPORT SPECIALIST NURSE AT BEDSIDE FOR CONTINUITY OF CARE. PT IS AWAKE. PER GEOPHYSICAL SUPPORT SPECIALIST NURSE, PT HAD NOT SLEPT ALL NIGHT LONG EVEN AFTER RECEIVING AMBIEN. PT IS STILL CONFUSED, UNABLE TO FIND WORDS. WILL TALK TO MD ABOUT POSSIBLE CT? SOME REDNESS IN THE SACRAL AREA. WILL REQUEST HYDROGUARD. NG TUBE STILL IN PLACE. GLUCERNA INFUSING AT 30ML/HR. H2O FLUSH Q 6 HR AT 50ML. PICC LINE ON RITCHIE D5 NS W/ KCL 20MEQ AT 30ML INFUSING. WILL CONTINUE WITH ABX THERAPY FOR INFECTION. V/S WITHIN NORMAL RANGE. DENIES PAIN. WILL CONTINUE TO MONITOR PT.
[2018-05-29 07:31] LABS: ALBUMIN 1.4 g/dL (3.4-5.0); ANION GAP 10.2 (8-16); CARBON DIOXIDE 22.8 mmol/L (21-32); TOTAL BILIRUBIN 0.9 mg/dL (0.0-1.0)
[2018-05-29 08:00] VITALS: BP 121/74
[2018-05-29] MEDS: FUROSEMIDE 20 MG/2 ML VIAL IVP SCH ×2 (09:23→20:41)
[2018-05-29] MEDS: LACTULOSE 20 GM/30 ML UDC PO SCH ×2 (09:42→20:34)
[2018-05-29] MEDS: SODIUM BICARBONATE 650 MG TAB PO SCH ×2 (09:43→20:35)
[2018-05-29] MEDS: RIFAXIMIN 550 MG TAB PO SCH ×2 (09:43→20:35)
--- NOTE | 2018-05-29 10:00 | NUR ---
STUDENT RN AND INSTRUCTOR GAVE MORNING MEDS VIA NG TUBE. CHECK FOR RESIDUAL-0. PT TOLERATED WELL. NO SIGNS OF DISTRESS. WILL CONTINUE TO MONITOR PT.
--- NOTE | 2018-05-29 10:39 | NUR ---
PT TAKEN TO RADIOLOGY FOR CT OF THE HEAD.
--- NOTE | 2018-05-29 11:28 | NUR ---
NOTE CONCURRENT REVIEW FAXED TO [facility] [phone] WONG PH# [phone] Addendum: 05/29/18 at 1140 by Nathalia Reyna SNF REFERRAL FAXED TO [facility] [phone] WONG # [phone]. PER [facility] CODY DAVIS PH# [phone], IF PATIENT NEEDS SNF, PATIENT CAN GO TO ONE OF THEIR CONTRACTED FACILITIES [facility], [facility], [facility], [facility].
[2018-05-29] MEDS: VANCOMYCIN 500 MG in DEXTROSE 5% 100 ML IV SCH ×2 (11:30→23:25)
--- NOTE | 2018-05-29 11:30 | NUR ---
P/T WAS HERE TO ASSESS PT. PT IS VERY WEAK. UNABLE TO AMBULATE. SAT AT SIDE OF BED, HAD TO HOLD HER BACK SO SHE DOESN'T FALL BACKWARDS. WILL CONTINUE TO MONITOR PT.
[2018-05-29] MEDS: POTASSIUM CHL 20MEQ/D5-NS 1,000 ML IV SCH (11:31)
--- NOTE | 2018-05-29 11:38 | NUR ---
ADMINISTERED VANCO AND NEW IV FLUID. PT TOLERATING WELL.
[2018-05-29 12:00] VITALS: BP 123/84
--- NOTE | 2018-05-29 14:21 | NUR ---
CAREGIVER MS. LOGAN IS HERE. PT IS VISITING. VERY PLEASED TO SEE HER. NO SIGNS OF DISTRESS. WILL CONTINUE TO MONITOR PT.
[2018-05-29] MEDS: HYDROcodone/APAP 5/325 MG 1 TAB TAB PO PRN (14:41)
--- NOTE | 2018-05-29 14:52 | NUR ---
PT C/O ROQUE. GAVE NORCO VIA NG TUBE. PT TOLERATED WELL. WILL CONTINUE TO MONITOR PT.
--- NOTE | 2018-05-29 15:15 | NUR ---
05/29/18 RD FOLLOW UP COMPLETED PLEASE REFER TO NUTRITION ASSESSMENT UNDER CARE ACTIVITY FOR ESTIMATED NUTRITIONAL NEEDS. 1. IF PT PASSES SWALLOW EVALUATION RECOMMEND CCHO 60 GM DIET WITH TEXTURE RECOMMENDED BY SPEECH THERAPIST. 2. IF PT DOES NOT PASS SWALLOW EVALUATION RECOMMEND INCREASING TUBE FEED RATE TO 50 ML/HR. -THIS WILL PROVIDE 1200 ML, 1440 KCAL AND 72 GM OF PROTEIN MEETING 100% OF ESTIMATED NEEDS. 3. FREE WATER FLUSH [address] TO FOLLOW-UP 2-3 DAYS, HIGH RISK KATHLEEN BERTRAND RD
[2018-05-29 16:00] VITALS: BP 125/69
--- NOTE | 2018-05-29 16:37 | NUR ---
PT ASKING FOR FOOD, CORN AND ICE CREAM. SWALLOW EVAL WILL BE TOMORROW. ST NOT ABLE TO COME TODAY. PT'S FRIEND WENT HOME. WILL CONTINUE TO MONITOR PT.
[2018-05-29] MEDS: MUPIROCIN CA NASAL 2% 1GM TUBE NS SCH (17:38)
[2018-05-29] MEDS: CHLORHEXADINE GLUC 2% CLOTH TP SCH (17:39)
--- NOTE | 2018-05-29 19:08 | NUR ---
ENDORSED PT TO THE SCREEN TENDER HELPER NURSE AT BEDSIDE FOR CONTINUITY OF CARE. PT IS IN STABLE CONDITION. VISITING WITH SON.
--- NOTE | 2018-05-29 19:10 | NUR ---
RECEIVED PT AWAKE WITH SON AT BEDSIDE, PT AAOX2, VERBALLY RESPONSIVE BUT EPISODES OF CONFUSION, WITH RT NARES NGT WITH TUBE FEEDING OF GLUCERNA AT 40ML/H, HOB ELEVATED AT ALL TIMES, IVF INFUSING WELL VIA RT UA PICC LINE, DRESSING DRY AND INTACT, PLAN OF CARE DISCUSSES, SAFETY MEASURES IN PLACE, ON CONTACT ISOLATION, WILL REPOSITION Q2H AND OFFLOAD PRESSURE AREAS, CALL LIGHT WITHIN REACH.
[2018-05-29 20:00] VITALS: BP 91/52
--- NOTE | 2018-05-29 20:50 | NUR ---
20ML RESIDUAL NOTED, WILL INCREASE TUBE FEEDING RATE TO 50ML/H, DUE MEDS ADMINISTERED THRU NGT AFTER PLACEMENT VERIFICATION, ALL NEEDS ANTICIPATED.
--- NOTE | 2018-05-29 21:45 | NUR ---
PT INCONTINENT OF URINE AND BM, BM WITH LOOSE BROWNISH STOOL SMALL AMOUNT NOTED, PERINEAL CARE DONE, REPOSITIONED AND OFFLOAD PRESSURE AREAS.
[2018-05-30] VITALS: BP 99/64
--- NOTE | 2018-05-30 | NUR ---
PT SLEEPING, OPEN EYES TO TOUCH, VITAL SIGNS TAKEN, BP ON THE LOW SIDE BUT STABLE, PT WENT BACK TO SLEEP, IVF INFUSING WELL, CONTINUE TO MONITOR CLOSELY.
[2018-05-30 04:00] VITALS: BP 99/57
[2018-05-30] MEDS: MEROPENEM 500 MG in NACL 0.9% 50 ML IV SCH ×3 (04:15→21:16)
[2018-05-30] MEDS: HYDROcodone/APAP 5/325 MG 1 TAB TAB PO PRN ×3 (05:28→18:38)
--- NOTE | 2018-05-30 05:30 | NUR ---
AM CARE DONE, BM WITH LARGE LOOSE STOOL, INCONTINENT CARE DONE, COMPLAINING OF PAIN, 10ML NGT RESIDUAL NOTED, MEDICATED WITH NORCO, MONITORED CLOSELY.
[2018-05-30] MEDS: DEXTROSE 50% 50 ML SYR IVP PRN (05:47)
--- NOTE | 2018-05-30 06:30 | NUR ---
BLOOD SUGAR RECHECKED AFTER D50 1 AMP GIVEN, RESULT-137, PT SLEEPING, NO SIGNS OF DISTRESS, MONITORED CLOSELY.
[2018-05-30] MEDS: BLOOD GLUCOSE MONITORING 1 DEV DEV FS SCH ×4 (06:34→21:08)
[2018-05-30 07:23] LABS: HEMATOCRIT 24.7 % (36-48); HEMOGLOBIN 8.3 g/dL (12.0-16.0); MEAN CORPUSCULAR HEMOGLOBIN 32 pg (27-31); MEAN CORPUSCULAR HGB CONC 34 g/dL (33-37); MEAN CORPUSCULAR VOLUME 96.2 fL (80-94); PLATELET COUNT (AUTO) 40 K/uL (140-450); RED BLOOD CELL COUNT(AUTO) 2.56 MIL/uL (4.20-5.40); RED CELL DISTRIBUTION WIDTH 15.4 % (11.6-13.7); WHITE BLOOD COUNT (AUTO) 9.2 K/uL (4.8-10.8)
--- NOTE | 2018-05-30 07:25 | NUR ---
PT SLEEPING, NO SIGNS OF DISTRESS, BEDSIDE REPORT GIVEN TO RN BRENDA FOR CONTINUITY OF CARE.
--- NOTE | 2018-05-30 07:26 | NUR ---
REPORT RECEIVED FROM FUR SCRAPER SHERMAN, PT SLEEPING QUIETLY IN NAD, RESP EVEN UNLABORED, SKIN WARM DRY COLOR WNL, AROUSES EASILY, IRRITABLE, NO C/O PAIN OR SOB, NO IMMEDIATE NEEDS AT THIS TIME, PLAN OF CARE REVIEWED, ALL SAFETY MEASURES IN PLACE, WILL CONTINUE TO MONITOR
[2018-05-30 07:29] LABS: ALBUMIN 1.2 g/dL (3.4-5.0); ANION GAP 7.4 (8-16); POTASSIUM 4.4 mmol/L (3.5-5.1); TOTAL BILIRUBIN 0.5 mg/dL (0.0-1.0)
[2018-05-30 07:32] LABS: PROTHROMBIN TIME 12.1 secs (10.8-13.4)
[2018-05-30 08:00] VITALS: BP 91/51
[2018-05-30] MEDS: LACTULOSE 20 GM/30 ML UDC PO SCH ×2 (09:00→21:17)
--- NOTE | 2018-05-30 09:27 | NUR ---
S.T. BEDSIDE SWALLOW EVAL COMPLETED See report for details. Pt presents with moderate orpharyngeal dysphagia c/b limited oral ROM/strength and bolus manipulation and coughing after swallow of thin liquids. Recommend: 1. Advance to mechanical soft ground diet, NECTAR THICK LIQUIDS ONLY. By spoon only, no straws. 2. Crush P.O. meds, give with puree. 3. S.T. to f/u to ensure tolerance of recommended diet textures and advance diet textures if appropriate. Time in/out: [id number] CJ [id number] NOMS LEVEL 3
[2018-05-30] MEDS: RIFAXIMIN 550 MG TAB PO SCH ×2 (09:29→21:17)
[2018-05-30] MEDS: SODIUM BICARBONATE 650 MG TAB PO SCH ×2 (09:29→21:17)
[2018-05-30] MEDS: FUROSEMIDE 20 MG/2 ML VIAL IVP SCH ×2 (09:30→21:00)
[2018-05-30 10:04] LABS: LYMPHOCYTES % (MANUAL) 8 % (20-46); MONOCYTES % (MANUAL) 6 % (5-12)
--- NOTE | 2018-05-30 10:15 | NUR ---
PHYSICAL THERAPY AT BEDSIDE
--- NOTE | 2018-05-30 10:52 | NUR ---
BED BATH GIVEN, PERICARE DONE, LINEN AND GOWN CHANGED, PT YOSEPH WELL.
[2018-05-30] MEDS ORDERED: Z-GUARD PASTE TP PRN (11:05)
[2018-05-30] MEDS: VANCOMYCIN 500 MG in DEXTROSE 5% 100 ML IV SCH ×2 (11:30→23:03)
--- NOTE | 2018-05-30 11:40 | NUR ---
CONCURRENT REVIEW FAXED TO [facility] [phone]
[2018-05-30 12:00] VITALS: BP 128/58
--- NOTE | 2018-05-30 13:26 | NUR ---
Analog Device Designer Note: I called patient's son Giovani Schmitt yesterday 05/29/18 and today 05/30/18 to discuss patient's discharge plan, no answer, left messages. I faxed inquiries to the following snfs: [facility] Per Katina from [facility] , no beds available today, nor will they have beds tomorrow 05/31/18 [facility] Addendum: 05/30/18 at 5891 by Padma Andino SS Per Opal from [facility] , they don't have any beds available today, unable to accept.
--- NOTE | 2018-05-30 14:09 | NUR ---
NGT FEEDING STOPPED AT THIS TIME, NGT REMAINS CLAMPED IN RIGHT NARE FOR NOW, PUREE DIET ORDER RECEIVED FROM DR GRACIA, WILL ASSIST PT WITH FEEDING.
--- NOTE | 2018-05-30 14:50 | NUR ---
PERICARE DONE, PAD CHANGED, PT YOSEPH WELL, WILL CONTINUE TO MONTIOR.
[2018-05-30 16:00] VITALS: BP 128/62
--- NOTE | 2018-05-30 16:50 | NUR ---
BLOOD SUGAR 68, THICK APPLE JUICE GIVEN, WILL MONITOR BLOOD SUGAR
[2018-05-30] MEDS: CHLORHEXADINE GLUC 2% CLOTH TP SCH (17:40)
[2018-05-30] MEDS: MUPIROCIN CA NASAL 2% 1GM TUBE NS SCH (17:59)
--- NOTE | 2018-05-30 18:10 | NUR ---
YOSEPH MASHED POTATO WITH GRAVY ONLY FROM [facility] WITH ASSIST.
[2018-05-30] MEDS: POTASSIUM CHL 20MEQ/D5-NS 1,000 ML IV SCH (18:33)
--- NOTE | 2018-05-30 19:20 | NUR ---
REPORT GIVEN TO EXTERNAL RELATIONS MANAGER NURSE, PT IN STABLE CONDITION
--- NOTE | 2018-05-30 19:25 | NUR ---
RECEIVED PT IN STABLE CONDITION FROM AM NURSE. PT IS BEDREST. AWAKE, ALERT ,ORIENTED X2-3. WITH PERIODS OF CONFUSION. HAS GENERALIZED WEAKNESS. ON TELE MONITOR -SR. HAS NON PITTING EDEMA ON BOTH BUE AND BLE. FAMILY MEMBERS AT BEDSIDE. GIVEN TEACHING ON CONTACT PRECAUTION. VERBALIZED UNDERSTANDING. IVF INFUSING WELL ON THE RT UPPER PICC LINE. CLEAR AND PATENT. STILL WITH NGT THAT IS CLAMPED . FREQUENT ROUNDS NEEDED. BED ON LOWEST POSITION. CALL LIGHT PLACED WITHIN EASY REACH. WILL CONTINUE TO MONITOR.
[2018-05-30 20:00] VITALS: BP 99/65
--- NOTE | 2018-05-30 21:08 | NUR ---
BLOOD SUGAR WAS CHECKED 77. ENCOURAGED TO TAKE SOME APPLE SAUCE AND JUICE. ABLE TO TOLERATE 2/3 CUP OF APPLE SAUCE AND FEW SPOONS OF THICKENED APPLE JUICE. REFUSED TO TAKE MORE . PT WITH CONTINUOUS IVF. WILL CONTINUE TO MONITOR.
--- NOTE | 2018-05-30 21:30 | NUR ---
PT REPOSITIONED FOR COMFORT. HAD A MODERATE LOOSE STOOL. SACRAL AREA REDNESS APPLIED WITH Z GUARD NEEDED.
[2018-05-31 00:45] VITALS: BP 91/56
--- NOTE | 2018-05-31 01:00 | NUR ---
PT WITH REDNESS/EXCORIATION ON THE SACRAL AREA. DRESSING IN PLACED.
[2018-05-31] MEDS: POTASSIUM CHL 20MEQ/D5-NS 1,000 ML IV SCH ×2 (01:33→01:34)
[2018-05-31] MEDS: DEXTROSE 50% 50 ML SYR IVP PRN ×2 (02:24→16:25)
--- NOTE | 2018-05-31 02:24 | NUR ---
BLOOD SUGAR RECHECKED FOR EARLIER BS ONLY 77 AND PT DIDN'T REALLY TAKE ENOUGH HS SNACK. BLOOD SUGAR ONLY 59. PT IS ASLEEP. AROUSE WHEN NAME CALLED. DEXTROSE 50 % 50 ML GIVEN IVP ORDERED . WILL CONTINUE TO MONITOR , RECHECK BLOOD SUGAR LATER.
--- NOTE | 2018-05-31 04:00 | NUR ---
RECHECKED BLOOD SUGAR/ RESULT ONLY 78 AFTER THE D50 IVP GIVEN 0224. GAVE THROUGH NGT @250 ML OF JUICE . TOLERATED WELL. WILL CONTINUE TO MONITOR.
[2018-05-31 04:15] VITALS: BP 93/50
[2018-05-31] MEDS: MEROPENEM 500 MG in NACL 0.9% 50 ML IV SCH ×3 (04:33→21:20)
[2018-05-31] MEDS: HYDROcodone/APAP 5/325 MG 1 TAB TAB PO PRN ×2 (05:49→09:39)
[2018-05-31] MEDS: BLOOD GLUCOSE MONITORING 1 DEV DEV FS SCH ×4 (05:54→21:19)
--- NOTE | 2018-05-31 05:54 | NUR ---
LATEST BLOOD SUGAR AT THIS TIME IS 98. WILL CONTINUE TO MONITOR.
[2018-05-31 06:41] LABS: BASOPHILS % (AUTO) 0.1 % (0.0-2.0); EOSINOPHILS % (AUTO) 0.1 % (0.0-4.0); HEMATOCRIT 25.8 % (36-48); HEMOGLOBIN 8.5 g/dL (12.0-16.0); LYMPHOCYTES # (AUTO) 1.2 K/uL (2.5-16.5); LYMPHOCYTES % (AUTO) 12.9 % (20.5-51.1); MEAN CORPUSCULAR HEMOGLOBIN 32 pg (27-31); MEAN CORPUSCULAR HGB CONC 33 g/dL (33-37); MEAN CORPUSCULAR VOLUME 97.2 fL (80-94); MONOCYTES # (AUTO) 0.7 K/uL (0.8-1.0); MONOCYTES % (AUTO) 7.4 % (1.7-9.3); NEUTROPHILS # (AUTO) 7.5 K/uL (1.8-7.7); NEUTROPHILS % (AUTO) 79.5 % (42.2-75.2); PLATELET COUNT (AUTO) 60 K/uL (140-450); RED BLOOD CELL COUNT(AUTO) 2.66 MIL/uL (4.20-5.40); RED CELL DISTRIBUTION WIDTH 15.4 % (11.6-13.7); WHITE BLOOD COUNT (AUTO) 9.4 K/uL (4.8-10.8)
[2018-05-31 06:56] LABS: ANION GAP 5.7 (8-16); CARBON DIOXIDE 25.8 mmol/L (21-32); CREATININE 0.9 mg/dL (0.6-1.3); POTASSIUM 4.5 mmol/L (3.5-5.1)
--- NOTE | 2018-05-31 07:15 | NUR ---
ENDORSED PT IN STABLE CONDITION TO AM NURSE FOR CONTINUITY OF CARE.
--- NOTE | 2018-05-31 07:17 | NUR ---
RECEIVED REPORT FROM LENS BLOCKER NURSE. PT ASLEEP IN BED, RESPIRATIONS EVEN & UNLABORED, NO SIGNS OF DISTRESS. FALL PRECAUTIONS IN PLACE. CALL LIGHT WITHIN REACH. WILL CONTINUE TO MONITOR.
[2018-05-31 08:00] VITALS: BP 91/62
--- NOTE | 2018-05-31 08:44 | NUR ---
CM NOTE CONCURRENT REVIEW FAXED TO [facility] [phone] WONG # [phone]
[2018-05-31] MEDS: LACTULOSE 20 GM/30 ML UDC PO SCH ×2 (08:54→21:20)
[2018-05-31] MEDS: FUROSEMIDE 20 MG/2 ML VIAL IVP SCH ×2 (08:54→21:21)
[2018-05-31] MEDS: SODIUM BICARBONATE 650 MG TAB PO SCH (08:54)
[2018-05-31] MEDS: RIFAXIMIN 550 MG TAB PO SCH ×2 (08:54→21:20)
--- NOTE | 2018-05-31 09:00 | NUR ---
AM MEDS GIVEN. PT ABLE TO TAKE PO MEDS CRUSHED WITH CHOCOLATE PUDDING. CONTINUE TO HAVE POOR APPETITE, DECLINES ALTERNATE BREAKFAST/SNACKS WHEN OFFERED. AM CARE PROVIDED.
--- NOTE | 2018-05-31 11:05 | NUR ---
Manager Utilization Note: I called and spoke with patient's son Giovani Schmitt , I explained to him that it is important that he speaks with MD and nursing staff regarding patient's plan of care. He acknowledged that he received my previous voicemails that I left him. He stated he hadn't had time to call me back. I informed him our charge nurse Marisa would call him right back and discuss plan of care. He verbalized understanding. Per charge nurse Marisa, she will call him soon.
[2018-05-31] MEDS: VANCOMYCIN 500 MG in DEXTROSE 5% 100 ML IV SCH ×2 (11:21→23:40)
[2018-05-31 12:00] VITALS: BP 88/55
--- NOTE | 2018-05-31 12:05 | NUR ---
DR Bharath [place] AT BEDSIDE FOR EVAL
--- NOTE | 2018-05-31 12:54 | NUR ---
CM NOTE PER IE CAROLYN CAMERONA PH# [phone], FOR ACCEPTING SNF AUTH# [id number], FOR [facility] AUTH# [id number]
--- NOTE | 2018-05-31 14:44 | NUR ---
ST NOTE Discussed pt with nursing and cleared for ST Tx. Attempted puree and NTL trials; however, pt refused all trials despite beinga lert and able to verbalize. Informed nursing of refusal and nursing has seen similar behavior. Did not eat lunch meal. ST to follow up/attempt again next day.
--- NOTE | 2018-05-31 15:03 | NUR ---
Precision Layout Worker Note: prison facility follow up: Per Aislinn from [facility] , her alliance director will review inquiry and Aislinn will call me back, Aislinn is aware patient will be getting a G-tube today. I called the admission coordinator from [facility] , no answer, left message. Per Chapin from [facility] her alliance director will review inquiry and Chapin will call me back, Chapin is aware patient will be getting a G-tube today.
--- NOTE | 2018-05-31 15:06 | NUR ---
PHYSICAL THERAPY CO-SIGN The Physical Therapy Progress Notes documented by Switch Box Installer have been reviewed. I CONCUR W/CAREER DEVELOPMENT ASSOCIATE NOTE; CONT PER TX PLAN Reviewed/Co-Signed by: Sindhu Williamson, PT Documentation Done by: DIALLO JEROME PTA Addendum: 05/31/18 at 1507 by Sindhu Williamson PT Amended: Links added.
--- NOTE | 2018-05-31 15:15 | NUR ---
1190 SON CALLED NURSING UNIT AND DCM DISCUSSED WITH HIM PT NOT EATING AT THIS TIME AND NEEDS TO HAVE WALLPAPER REMOVER STEAM SOURCE OF NUTRITION WHICH WOULD BE A GTUBE. SON STATED HE UNDERSTOOD. DR GRACIA AT NURSING STATION AND SPOKE TO SON REGARDING GTUBE PLACEMENT AND PER DR GRACIA SON WAS IN AGREEMENT.
--- NOTE | 2018-05-31 15:40 | NUR ---
05/31/18 RD FOLLOW UP COMPLETED PLEASE REFER TO NUTRITION ASSESSMENT UNDER CARE ACTIVITY FOR ESTIMATED NUTRITIONAL NEEDS. 1. CONTINUE CCHO 60 GM PUREE WITH NECTAR THICK DIET TOLERATED 2. RECOMMEND ALONG WITH ORAL DIET, GLUCERNA @45 ML/HR WITH 80 ML WATER FLUSH Q4H -THIS WILL PROVIDE 1080 ML, 1296 KCAL, 65 GM PROTEIN MEETING 90% OF ESTIMATED KCAL NEEDS AND 100% OF PROTEIN NEEDS. 3. RD TO FOLLOW-UP 2-3 DAYS, HIGH RISK KATHLEEN BERTRAND RD
[2018-05-31 16:00] VITALS: BP 102/61
--- NOTE | 2018-05-31 16:25 | NUR ---
BEDSIDE GLUCOSE 26, THEN REPEAT 56, D50% GIVEN PER ODER, PT RESTING QUIETLY IN NAD, AWAKE, SPEAKS CLEARLY AND REQUESTS HER LEGS TO BE RE-POSITIONED, WILL RE-CHECK GLUCOSE
[2018-05-31] MEDS: CHLORHEXADINE GLUC 2% CLOTH TP SCH (16:34)
--- NOTE | 2018-05-31 17:44 | NUR ---
BLOOD SUGAR 87 AFTER D50, NG FEEDING STARTED PER ORDER, GLUCERNA 1.2 AT 30ML/HR 80ML H2O/Q4H, WILL CHECK RESIDUAL THEN INCREASE TO 45ML/HR..
[2018-05-31] MEDS: MUPIROCIN CA NASAL 2% 1GM TUBE NS SCH (17:59)
--- NOTE | 2018-05-31 19:10 | NUR ---
REPORT GIVEN TO ULTRASOUND MANAGER NURSE FOR CONTINUITY OF CARE. PT IN BED, AWAKE, NO SIGNS OF DISTRESS.
--- NOTE | 2018-05-31 19:15 | NUR ---
RECEIVED PT IN STABLE CONDITION FROM AM NURSES. AWAKE,ALERT AND ORIENTED X3. WITH PERIODS OF CONFUSION. ON TELE MONITOR. BEDREST. HAS GENERALIZED WEAKNESS. HAS IVF INFUSING WELL ON THE RT UPPER ARM PICC LINE. NGT FEEDING INFUSING A 35 ML /HR. NO RESIDUAL NOTED. HAS INCONTINENT DERMATITIS ON SACRUM/AZAEL AREA, DRESSING INTACT. BED ON LOW POSITION. CALL LIGHT PLACED WITHIN EASY REACH AND FREQUENT ROUNDS NEEDED. WILL CONTINUE TO MONITOR.
[2018-05-31 19:50] VITALS: BP 110/65
--- NOTE | 2018-05-31 21:19 | NUR ---
BLOOD SUGAR WAS CHECKED RESULT 70. PT IS AWAKE,ALERT AN ORIENTED X3. GAVE SOME JUICE SLOWLY THROUGH THE NGT AND FEEDING STILL ONGOING. WILL CONTINUE TO MONITOR.
--- NOTE | 2018-05-31 21:42 | NUR ---
BLOOD SUGAR WAS 260. INSULIN COVERAGE GIVEN SUBQ ON THE RT ARM. PT HAD HS SNACK. WILL CONTINUE TO MONITOR. Addendum: 05/31/18 at 2334 by Krissy Menjivar RN CANCEL ABOVE NOTES, WRONG PT.
[2018-06-01] VITALS: BP 103/63
--- NOTE | 2018-06-01 01:00 | NUR ---
MADE ROUNDS. PT ASLEEP. NO S/S OF ANY DISCOMFORT NOR PAIN NOTED.
--- NOTE | 2018-06-01 02:06 | NUR ---
PT BLOOD SUGAR TENDS TO GO DOWN,RECHECKED AT THIS TIME RESULT 91. NGT FEEDING ON AND IVF INFUSING WELL.
--- NOTE | 2018-06-01 03:00 | NUR ---
MADE ROUNDS. PT ASLEEP. NO DISTRESS NOTED. WILL CONTINUE TO MONITOR.
[2018-06-01] MEDS: MEROPENEM 500 MG in NACL 0.9% 50 ML IV SCH ×2 (04:24→14:15)
[2018-06-01 04:33] VITALS: BP 111/66
--- NOTE | 2018-06-01 05:00 | NUR ---
OPT HAS BEEN REPOSITIONED FOR COMFORT.HAD X3 SMALL AMOUNT SOFT BM. KEPT CLEAN AND DRY .Z GUARD APPLIED THEN COVER WITH DRESSING ON SACRAL AREA.
[2018-06-01] MEDS: BLOOD GLUCOSE MONITORING 1 DEV DEV FS SCH ×2 (06:11→11:30)
--- NOTE | 2018-06-01 06:14 | NUR ---
BLOOD SUGAR THIS AM 99. TOLERATING NGT FEEDING . NO RESIDUAL NOTED. FEEDING UP TO 45ML /HR.
--- NOTE | 2018-06-01 07:10 | NUR ---
ENDORSED PT IN STABLE CONDITION TO AM NURSE.
--- NOTE | 2018-06-01 07:12 | NUR ---
RECEIVED REPORT FROM HAIRCUTTER NURSE. PT LYING COMFORTABLY IN BED, VERBALLY RESPONSIVE, NO SIGNS OF DISTRESS, RESPIRATIONS EVEN & UNLABORED. FALL PRECAUTIONS IN PLACE. WILL CONTINUE TO MONITOR.
[2018-06-01 07:44] LABS: BASOPHILS % (AUTO) 0.2 % (0.0-2.0); EOSINOPHILS % (AUTO) 0.1 % (0.0-4.0); HEMOGLOBIN 8.6 g/dL (12.0-16.0); LYMPHOCYTES # (AUTO) 1.5 K/uL (2.5-16.5); LYMPHOCYTES % (AUTO) 17.5 % (20.5-51.1); MEAN CORPUSCULAR HEMOGLOBIN 32 pg (27-31); MEAN CORPUSCULAR HGB CONC 33 g/dL (33-37); MEAN CORPUSCULAR VOLUME 95.9 fL (80-94); MONOCYTES # (AUTO) 0.8 K/uL (0.8-1.0); MONOCYTES % (AUTO) 8.7 % (1.7-9.3); NEUTROPHILS # (AUTO) 6.4 K/uL (1.8-7.7); NEUTROPHILS % (AUTO) 73.5 % (42.2-75.2); PLATELET COUNT (AUTO) 92 K/uL (140-450); RED BLOOD CELL COUNT(AUTO) 2.71 MIL/uL (4.20-5.40); RED CELL DISTRIBUTION WIDTH 15.4 % (11.6-13.7); WHITE BLOOD COUNT (AUTO) 8.8 K/uL (4.8-10.8)
[2018-06-01 08:00] VITALS: BP 106/65
[2018-06-01 08:18] LABS: ALBUMIN 1.3 g/dL (3.4-5.0); ANION GAP 8.2 (8-16); CREATININE 0.8 mg/dL (0.6-1.3); POTASSIUM 4.2 mmol/L (3.5-5.1); TOTAL BILIRUBIN 0.4 mg/dL (0.0-1.0)
--- NOTE | 2018-06-01 08:59 | NUR ---
PT'S RIVETING MACHINE OPERATOR TAPE CONTROL AT BEDSIDE, DARRICK , STATES SHE VISITS PATIENTS ABOUT 4 HOURS A DAY, 5 DAYS A WEEK. DARRICK ASSISTING PT WITH FEEDING.
--- NOTE | 2018-06-01 09:15 | NUR ---
BONILLA PROVIDED WITH 2-PERSON MAX ASSIST. PT HAD X1 MODERATE SOFT BM. PT'S LAW FIRM ADMINISTRATOR AT BEDSIDE. REPOSITIONED PT TO RT-SIDE LYING POSITION. CLEAN & DRY. CALL LIGHT WITHIN REACH. PT DENIES ANY DISCOMFORT. NO SIGNS OF DISTRESS. WILL CONT TO MONITOR.
[2018-06-01] MEDS: RIFAXIMIN 550 MG TAB PO SCH (09:51)
[2018-06-01] MEDS: LACTULOSE 20 GM/30 ML UDC PO SCH (09:51)
[2018-06-01] MEDS: FUROSEMIDE 20 MG/2 ML VIAL IVP SCH (09:52)
[2018-06-01] MEDS: ACETAMINOPHEN 325 MG TAB PO PRN (10:38)
[2018-06-01] MEDS: VANCOMYCIN 500 MG in DEXTROSE 5% 100 ML IV SCH (11:00)
--- NOTE | 2018-06-01 11:07 | NUR ---
Livestock Yard Supervisor Note: I faxed inquiry to [facility], fax number , phone number . Per Ailyn from [facility], patient has been accepted and may go to room 102C anytime today, accepting physician is . Ailyn is aware patient currently has NG tube, she stated they can accommodate patient with NG tube and with MRSA nares. I called and spoke with patient's son Giovani, he is in agreement with patient being transfer to [facility] today. I provided him with [facility]'s phone number and address. He reported he will speak with patient via phone and inform her of transfer to [facility]. Giovani called me back and stated he spoke with patient and she is in agreement with transfer to [facility]. Addendum: 06/01/18 at 1124 by Padma Andino SS Per Ailyn from [facility], they have a contract with [facility]
--- NOTE | 2018-06-01 11:10 | NUR ---
Legal Coordinator Note: I provided Ailyn from [facility] with SNF authorization [id number] from [facility]
[2018-06-01 11:37] VITALS: BP 121/69
--- NOTE | 2018-06-01 11:40 | NUR ---
CM NOTE CONCURRENT REVIEW, SNF REFERRAL ORDER, PT NOTES, SWALLOW EVAL NOTES, GI CONSULT FAXED TO [facility] [phone] WONG # [phone]. PER [facility]IK[facility], PATIENT WILL BE PICKED UP AT 1500 TIME TODAY GOING TO [facility]. CHARGE NURSE DANNA ARORA.
--- NOTE | 2018-06-01 11:50 | NUR ---
LARGE BM, LOOSE, BEDBATH GIVEN, PERICARE DONE, WOUND CARE ON SACRAL WOUND, CLEANED WITH NS, PAT DRY, Z GURD APPLIED, OPTIFOAM APPLIED.
--- NOTE | 2018-06-01 12:13 | NUR ---
CM NOTE ORDER FOR SNF FAXED TO [facility] [phone] WONG PH# [phone]
--- NOTE | 2018-06-01 12:24 | NUR ---
TOOL ROOM ATTENDANT note (attempted dysphagia therapy) 1215. TOOL ROOM ATTENDANT came to provide dysphagia therapy; however, pt asleep at this time and RN (Shena) declined for pt to be awakened at this time and reported that pt is going to be discharged to SNF today with NGT feedings as pt's PO intake is inadequate to support her needs. TOOL ROOM ATTENDANT respected RN's request at this time to not awaken pt. TOOL ROOM ATTENDANT will f/u to continue per current TOOL ROOM ATTENDANT plan of care if pt not discharged from hospital today.
--- NOTE | 2018-06-01 12:30 | NUR ---
WOUND CARE NURSE AT BEDSIDE FOR WOUND EVAL. PT WITH X1 LOOSE BM, PERICARE PROVIDED. RECTAL TUBE APPLIED. PT DENIES ANY PAIN OR DISCOMFORT. NO SIGNS OF DISTRESS. PICC LINE DRESSING CHANGED. PT KEPT CLEAN & DRY. CALL LIGHT PLACED WITHIN REACH. FALL PRECAUTIONS IN PLACE. WILL CONTINUE TO MONITOR.
--- NOTE | 2018-06-01 12:50 | NUR ---
WOUND CARE EVALUATION NOTE: REASON FOR EVALUATION: LOW KELSI SCORE AND CHANGE OF SKIN CONDITION SKIN ASSESSMENT DONE WITH PRIMARY RN AT 1230 PM WITH THIS 57 Y/O FEMALE PT ADMITTED FROM HOME TO [facility] WITH INITIAL DX OF CONFUSION AND LETHARGY 2/2 HYPOGLYCEMIA. PAST MEDICAL HX INCLUDES DM, OBESITY, GASTRIC BYPASS, LIVER CIRRHOSES, AND STRANGULATED HERNIA WITH REMOVAL OF G-TUBE ON FEBRUARY 2018. ALL ABOVE INFORMATION OBTAINED FROM ADMISSION H&P. LABS ARE WBC 8.8, H/H 8.6/26, GLUCOSE 98 AND ALBUMIN 1.3. PT IS AWAKE. SKIN IS WARM AND DRY, MULTIPLE TATTOO TO UPPER BODY. NG TUBE IN PLACE. BLE NO HAIR GROWTH, STIFFNESS, NO EDEMA. DORSAL PEDAL PULSES PRESENT AND NORMAL. CAPILLARY REFILLED < 2 SEC. X 10 TOES. INCONTINENT OF BOWEL AND BLADDER. PLAN OF CARE DISCUSSED WITH PT. AND PRIMARY RN. INTEGUMENTARY: -LEFT FOREARM ECCHYMOSIS, SKIN INTACT. -ABDOMEN DISTENDED, NON-TENDER TO TOUCH. MULTIPLE HEALED OLD SCARS. -INCONTINENT ASSOCIATE DERMATITIS (IAD) TO: B/L GROINS EXTENDED TO PERINEUM -PRESSURE INJURY STAGE 2 ON COCCYX WITH 1X0.8X0.2CM, WOUND BED IS RED, MOIST, NO ODOR, AZAEL-WOUND SKIN INTACT AND SURROUNDING REDNESS 2X1.5CM INDICATED FURTHER DAMAGE. -IAD TO LEFT BUTTOCK WITH A PARTIAL THICKNESS SKIN EROSIONS 0.5X0.5X0.1CM, WOUND BED IS PINK, CLEAN AND MOIST ,PERIWOUND RED WITH INTACT SKIN, NO ODOR. -RIGHT KNEE SKIN TEAR 0.5X0.5X0.1CM DRY AND CLEAN, WITH TRANSPARENT DRESSING IN PLACE. -BLE DRYNESS -BILATERAL HEELS BLANCHABLE REDNESS RECOMMENDATIONS: -MAY USE RECTAL BAG FOR MOISTURE CONTROL -KEEP SKIN DRY AND CLEAN AT ALL TIMES, PLEASE CHECK Q2H AND PRN FOR INCONTINENCY OF BOWEL AND BLADDER. -APPLY HYDRAGUARD TO BLE, R/L GROINS EXTENDED TO PERINEUM BID AND PRN IF SOILING -CLEANSE LEFT BUTTOCK WITH MILD SOAP AND WATER, APPLY Z-GUARD BIDWC AND PRN IF SOILING -CLEANSE SACROCOCCY WITH NS. PAT DRY, APPLY Z-GUARD AND COVER WITH FORM DRESSING QD AND PRN IF SOILING -CONTINUE TO MONITOR RIGHT KNEE SKIN TEAR AND CHANGE DRESSING PRN IF SOILING. -OFFLOAD BILATERAL HEELS BY PLACING PILLOWS UNDER CALVES UNLESS OTHERWISE CONTRAINDICATED -PRESSURE REDISTUBUTION SURFACE THERAPY -TURN AND REPOSITION Q2H, OFFLOAD SACRALCOCCYX AND BUTTOCKS BY TURNING RIGHT AND LEFT -CONTINUE TO FOLLOW RD RECOMMENDATIONS ALL ABOVE RECOMMENDATIONS DISCUSSED WITH PRIMARY RN. WILL FOLLOW UP PT Q7-10 DAYS. PLEASE CONTACT WOUND CARE NURSE FOR ANY QUESTION AND CHANGE OF WOUND CONDITION.
[2018-06-01] MEDS ORDERED: SKINTEGRITY HYDROGEL TP PRN (13:25)
[2018-06-01] MEDS ORDERED: MER500I IV (13:44)
[2018-06-01] MEDS ORDERED: ACET-1182 PO (13:44)
[2018-06-01] MEDS ORDERED: LACT10SO11 PO (13:44)
[2018-06-01] MEDS ORDERED: RIFA550T PO (13:44)
[2018-06-01] MEDS ORDERED: Vancomycin Per Pharmacy MC (13:44)
[2018-06-01] MEDS ORDERED: ZGUARD TP (13:44)
[2018-06-01] MEDS ORDERED: HYDGEL TP (13:46)
[2018-06-01] MEDS ORDERED: HUMSLIDE SUBQ (13:46)
--- NOTE | 2018-06-01 14:00 | NUR ---
SPOKE TO MARC HAILE FROM [facility] & GIVEN REPORT RE: PT. SPOKE TO PRIYANKA (SON) & NOTIFIED OF TRANSPORT TO SNF VIA [facility], COURT ATTENDANT TIME @ 1500. SON VERBALIZED UNDERSTANDING.
--- NOTE | 2018-06-01 15:34 | NUR ---
PHYSICAL THERAPY CO-SIGN The Physical Therapy Progress Notes documented by Drier And Evaporator Operator have been reviewed. I CONCUR W/WAREHOUSE STOCK CLERK NOTE, CONT PER TX PLAN Reviewed/Co-Signed by: Sindhu Williamson, PT Documentation Done by: LIVIA DEY PTA Addendum: 06/01/18 at 1535 by Sindhu Williamson PT Amended: Links added.
--- NOTE | 2018-06-01 16:20 | NUR ---
[facility] PICKED UP PT AT THIS TIME FOR TRANSPORT TO [facility]. PT ALERT & VERBAL, DENIES ANY PAIN OR DISCOMFORT, NO SIGNS OF DISTRESS. NGT IN PLACE TO RT NARES. RT UPPER PICC LINE INTACT. PT CLUTCHING HER CELLPHONE & STUFFED TOY. ALL OTHER BELONGINGS GIVEN TO LICENSED MASSAGE THERAPIST.
[2018-06-02] MEDS ORDERED: HYDRAGUARD CREAM TP SCH (01:00)
[2018-06-02] MEDS ORDERED: FUROSEMIDE 20 MG TAB PO SCH (09:00)
[2018-06-02] MEDS ORDERED: FOAM DRESSING TP SCH (13:00)
== END 2018-06-01 16:20 | DRG 720 ==
LOC: MED 10:35 → MTU 14:15
PROVIDERS: ADMIT Internal Medicine; ATTEND Internal Medicine
PROC: 02HV33Z Insertion of Infusion Device into Superior Vena Cava, Percutaneous Approach (ICD-10-PCS; principal; 2018-05-26)
PROC: B548ZZA Ultrasonography of Superior Vena Cava, Guidance (ICD-10-PCS; 2018-05-26)
DX: A41.51 Sepsis due to Escherichia coli [E. coli] (principal); J96.00 Acute respiratory failure, unspecified whether with hypoxia or hypercapnia; G93.40 Encephalopathy, unspecified; E43 Unspecified severe protein-calorie malnutrition; N17.9 Acute kidney failure, unspecified; J18.9 Pneumonia, unspecified organism; D69.6 Thrombocytopenia, unspecified; R13.12 Dysphagia, oropharyngeal phase; R18.8 Other ascites; E11.649 Type 2 diabetes mellitus with hypoglycemia without coma; A41.52 Sepsis due to Pseudomonas; K75.81 Nonalcoholic steatohepatitis (NASH); E87.70 Fluid overload, unspecified; I10 Essential (primary) hypertension; K74.60 Unspecified cirrhosis of liver; K72.90 Hepatic failure, unspecified without coma; E83.42 Hypomagnesemia; E86.0 Dehydration; E87.6 Hypokalemia; F41.9 Anxiety disorder, unspecified; M19.90 Unspecified osteoarthritis, unspecified site; D63.8 Anemia in other chronic diseases classified elsewhere; Z22.322 Carrier or suspected carrier of Methicillin resistant Staphylococcus aureus; Z98.84 Bariatric surgery status; Z68.27 Body mass index [BMI] 27.0-27.9, adult
CPT/HCPCS: 36415; 36600; 70450; 71045; 80048; 80053; 80202; 80305; 81001; 82009; 82140; 82533; 82550; 82553; 82607; 82746; 82803; 82948; 83036; 83605; 83735; 84100; 84132; 84443; 84484; 85025; 85379; 85610; 87040; 87081; 87086; 87186; 92610; 93005; 93970; 96374; 96376; 97110; 97116; 97140; 97530; 97799; 99285; A6248; C1751; C1758; G0482; J1815; J1940; J2185; J2543; J3370; J3475; J3480; J7030; J7060; P9046; Q0092

== ENCOUNTER 2018-07-04 12:49 | Inpatient (IN) | payer OTHER ==
[~2018-07-04] VITALS: Ht 157.5 cm; Wt 63.5 kg
[~2018-07-04 12:49] MED LIST: ACET-1182 PO; HUMSLIDE SUBQ; HYDGEL TP; LACT10SO11 PO; MER500I IV; RIFA550T PO; Vancomycin Per Pharmacy MC; ZGUARD TP
[2018-07-04] MEDS ORDERED: NACL 0.9% 1,000 ML IV ONE ×4 (12:54→20:30)
[2018-07-04] MEDS ORDERED: DEXTROSE 50% 50 ML SYR IVP ONE ×4 (12:55→14:35)
[2018-07-04] MEDS ORDERED: GLUCAGON 1 MG VIAL ONE (13:00)
[2018-07-04 13:03] VITALS: BP 77/53
[2018-07-04] MEDS ORDERED: DEXTROSE 10% 250 ML IV SCH (13:20)
[2018-07-04] MEDS ORDERED: DEXTROSE 10% 1,000 ML IV SCH (13:30)
[2018-07-04] MEDS ORDERED: DEXTROSE 10% 1,000 ML IV ONE (13:36)
[2018-07-04 14:32] LABS: BASOPHILS % (AUTO) 0.3 % (0.0-2.0); EOSINOPHILS % (AUTO) 0.1 % (0.0-4.0); HEMATOCRIT 24.1 % (36-48); LYMPHOCYTES # (AUTO) 0.4 K/uL (2.5-16.5); MEAN CORPUSCULAR HEMOGLOBIN 33 pg (27-31); MEAN CORPUSCULAR HGB CONC 33 g/dL (33-37); MEAN CORPUSCULAR VOLUME 98.4 fL (80-94); MONOCYTES # (AUTO) 0.1 K/uL (0.8-1.0); MONOCYTES % (AUTO) 4.2 % (1.7-9.3); NEUTROPHILS # (AUTO) 2.8 K/uL (1.8-7.7); NEUTROPHILS % (AUTO) 83.4 % (42.2-75.2); PLATELET COUNT (AUTO) 122 K/uL (140-450); RED BLOOD CELL COUNT(AUTO) 2.45 MIL/uL (4.20-5.40); RED CELL DISTRIBUTION WIDTH 16.2 % (11.6-13.7); WHITE BLOOD COUNT (AUTO) 3.3 K/uL (4.8-10.8)
[2018-07-04 14:39] LABS: PROTHROMBIN TIME 20.1 secs (10.8-13.4)
[2018-07-04 15:20] LABS: ANION GAP 17.8 (8-16); CARBON DIOXIDE 20.2 mmol/L (21-32); CREATININE 1.8 mg/dL (0.6-1.3)
[2018-07-04 15:21] LABS: ALBUMIN 1.2 g/dL (3.4-5.0); TOTAL BILIRUBIN 1.6 mg/dL (0.0-1.0)
[2018-07-04] MEDS ORDERED: KCL 20 MEQ/WATER INJ PREMIX 100 ML IV ONE (15:25)
[2018-07-04] MEDS ORDERED: MAG SULF 2000 MG/WATER PREMIX 50 ML IV ONE (15:25)
[2018-07-04] MEDS ORDERED: PIPERACILLIN/TAZOBACTAM 3.375 GM in DEXTROSE 5% 50 ML IV ONE (15:55)
[2018-07-04] MEDS ORDERED: NACL 0.9% 1,000 ML IV SCH (16:16)
[2018-07-04] MEDS ORDERED: ONDANSETRON 4 MG/2 ML VIAL IVP PRN (16:20)
[2018-07-04] MEDS ORDERED: ACETAMINOPHEN 325 MG TAB PO PRN (16:20)
[2018-07-04] MEDS ORDERED: HYDROcodone/APAP 5/325 MG 1 TAB TAB PO PRN ×2 (16:20)
[2018-07-04] MEDS ORDERED: HYDROmorphone PFS 2 MG/ML SYR IVP PRN (16:20)
[2018-07-04] MEDS ORDERED: PIPERACILLIN/TAZOBACTAM 3.375 GM VIAL IV ONE (16:29)
[2018-07-04] MEDS ORDERED: POTASSIUM CHL 20 MEQ/NACL 0.9% 1,000 ML IV SCH (17:05)
[2018-07-04 17:22] LABS: BILIRUBIN,URINE 1+ (NEGATIVE); BLOOD, URINE NEGATIVE (NEGATIVE); LEUKOCYTE ESTERASE ,URINE NEGATIVE (NEGATIVE); NITRITE, URINE NEGATIVE (NEGATIVE); UGLUCOSE NEGATIVE (NEGATIVE)
[2018-07-04 17:47] LABS: APPEARANCE,URINE CLEAR (CLEAR); COLOR,URINE AMBER (YELLOW)
[2018-07-04] MEDS ORDERED: POTASSIUM CHLORIDE 40 MEQ in DEXT 5% /NACL 0.9% 1,000 ML IV SCH (18:00)
[2018-07-04] MEDS ORDERED: NALOXONE 0.4 MG/ML VIAL IVP SCH (18:30)
[2018-07-04] MEDS ORDERED: WATER IV SCH (19:00)
[2018-07-04] MEDS ORDERED: KCL IV SCH (19:00)
[2018-07-04 19:09] LABS: ANION GAP 23.9 (8-16); CARBON DIOXIDE 13.9 mmol/L (21-32); CREATININE 1.9 mg/dL (0.6-1.3); POTASSIUM 2.8 mmol/L (3.5-5.1)
[2018-07-04 20:00] VITALS: BP 78/61
[2018-07-04] MEDS ORDERED: LACTULOSE 20 GM/30 ML UDC PO SCH (20:00)
[2018-07-04] MEDS ORDERED: SODIUM BICARBONATE 8.4% PFS 50 MEQ/50 ML SYR IVP ONE (20:06)
[2018-07-04] MEDS: KCL 20 MEQ/WATER INJ PREMIX 100 ML IV SCH ×3 (20:17→23:00)
[2018-07-04] MEDS ORDERED: SODIUM BICARBONATE 8.4% PFS 50 MEQ/50 ML SYR IVP SCH (20:30)
[2018-07-04] MEDS: PIPER/TAZO 3.375GM/D5W PREMIX 50 ML IV SCH (21:19)
[2018-07-04] MEDS: LACTULOSE 20 GM/30 ML UDC PO SCH (21:19)
[2018-07-04] MEDS: HYDROCORTISONE NA SUCC 100 MG/2 ML VIAL IV SCH (21:20)
[2018-07-04 22:00] VITALS: BP 159/87
[2018-07-04] MEDS ORDERED: VANCOMYCIN PER PHARMACY MC PRN (22:20)
[2018-07-04 22:51] LABS: ANION GAP 27.5 (8-16); CARBON DIOXIDE 11.7 mmol/L (21-32); CREATININE 1.8 mg/dL (0.6-1.3); POTASSIUM 3.2 mmol/L (3.5-5.1)
[2018-07-04 23:11] VITALS: BP 125/75
[2018-07-04] MEDS ORDERED: VANCOMYCIN 1GM/DEXT 5% PREMIX 200 ML IV SCH (23:15)
[2018-07-04] MEDS ORDERED: VANCOMYCIN 1,000 MG VIAL ONE (23:30)
[2018-07-05] VITALS (68 sets, daily range): BP systolic 31–150; BP diastolic 15–112
[2018-07-05 01:46] LABS: ANION GAP 28.8 (8-16); CARBON DIOXIDE 10.2 mmol/L (21-32); CREATININE 1.8 mg/dL (0.6-1.3)
[2018-07-05] MEDS: KCL 20 MEQ/WATER INJ PREMIX 100 ML IV SCH (03:22)
[2018-07-05] MEDS ORDERED: SODIUM BICARBONATE 8.4% PFS 50 MEQ/50 ML SYR IVP ONE ×2 (03:23→03:41)
[2018-07-05] MEDS ORDERED: SODIUM BICARBONATE 8.4% PFS 50 MEQ/50 ML SYR IVP SCH ×3 (03:30→21:45)
[2018-07-05] MEDS: SODIUM BICARBONATE 8.4% 150 MEQ in DEXTROSE 5% 1,000 ML IV SCH ×2 (03:41→14:44)
[2018-07-05] MEDS: HYDROCORTISONE NA SUCC 100 MG/2 ML VIAL IV SCH ×3 (05:16→21:47)
[2018-07-05] MEDS: PIPER/TAZO 3.375GM/D5W PREMIX 50 ML IV SCH ×3 (05:16→21:47)
[2018-07-05] MEDS ORDERED: NOREPINEPHRINE 4 MG/4 ML VIAL IV ONE (06:09)
[2018-07-05 06:10] LABS: MAGNESIUM 1.3 mg/dL (1.8-2.4); PHOSPHORUS 2.5 mg/dL (2.5-4.9)
[2018-07-05] MEDS: NOREPINEPHRINE 4 MG in DEXTROSE 5% 250 ML IV PRN ×3 (06:15→14:08)
[2018-07-05 06:37] LABS: ALBUMIN 0.9 g/dL (3.4-5.0); ANION GAP 27.6 (8-16); CARBON DIOXIDE 12.3 mmol/L (21-32); CREATININE 1.7 mg/dL (0.6-1.3); TOTAL BILIRUBIN 1.3 mg/dL (0.0-1.0)
[2018-07-05] MEDS ORDERED: DEXTROSE 50% 50 ML SYR IVP ONE ×2 (06:50→09:11)
[2018-07-05] MEDS ORDERED: WOUND CARE PREPARATION 178 ML SPR TP PRN (07:30)
[2018-07-05 07:42] LABS: POTASSIUM 2.9 mmol/L (3.5-5.1)
[2018-07-05] MEDS: BLOOD GLUCOSE MONITORING 1 DEV DEV FS SCH ×4 (07:53→20:37)
[2018-07-05] MEDS: DEXTROSE 50% 50 ML SYR IVP PRN ×3 (07:59→09:09)
[2018-07-05] MEDS ORDERED: KCL 20 MEQ/WATER INJ PREMIX 300 ML IV SCH (08:00)
[2018-07-05] MEDS ORDERED: CALCIUM GLUCONATE 10% 1,000 MG in NACL 0.9% 50 ML IV SCH (08:00)
[2018-07-05] MEDS ORDERED: DEXTROSE 10% 1,000 ML IV ONE (08:49)
[2018-07-05] MEDS: LACTULOSE 20 GM/30 ML UDC PO SCH ×2 (08:52→21:48)
[2018-07-05] MEDS: WOUND CARE PREPARATION 178 ML SPR TP SCH (08:59)
[2018-07-05] MEDS ORDERED: MAG SULF 2000 MG/WATER PREMIX 50 ML IV SCH (09:00)
[2018-07-05 10:30] LABS: ANION GAP 26.3 (8-16); CARBON DIOXIDE 14.5 mmol/L (21-32); CREATININE 1.8 mg/dL (0.6-1.3)
[2018-07-05 10:33] LABS: POTASSIUM 2.8 mmol/L (3.5-5.1)
[2018-07-05 10:35] LABS: HEMATOCRIT 25.6 % (36-48); HEMOGLOBIN 8.3 g/dL (12.0-16.0); RED BLOOD CELL COUNT(AUTO) 2.55 MIL/uL (4.20-5.40); WHITE BLOOD COUNT (AUTO) 5.3 K/uL (4.8-10.8)
[2018-07-05 10:36] LABS: MEAN CORPUSCULAR HEMOGLOBIN 32 pg (27-31); MEAN CORPUSCULAR HGB CONC 32 g/dL (33-37); MEAN CORPUSCULAR VOLUME 100.3 fL (80-94); RED CELL DISTRIBUTION WIDTH 16.9 % (11.6-13.7)
[2018-07-05 10:41] LABS: PLATELET COUNT (AUTO) 30 K/uL (140-450)
[2018-07-05 10:42] LABS: LYMPHOCYTES % (MANUAL) 20 % (20-46); MONOCYTES % (MANUAL) 8 % (5-12)
[2018-07-05] MEDS ORDERED: HYDROCORTISONE NA SUCC 100 MG/2 ML VIAL IV SCH (10:45)
[2018-07-05] MEDS ORDERED: DEXTROSE 10% 1,000 ML IV SCH (11:00)
[2018-07-05] MEDS ORDERED: GENTAMICIN 100 MG in DEXTROSE 5% 100 ML IV SCH (11:00)
[2018-07-05] MEDS ORDERED: PHENYLEPHRINE 10 MG in NACL 0.9% 250 ML IV PRN (12:00)
[2018-07-05] MEDS ORDERED: MEROPENEM 500 MG in NACL 0.9% 50 ML IV SCH (12:16)
[2018-07-05] MEDS ORDERED: FOAM DRESSING TP PRN (13:35)
[2018-07-05] MEDS ORDERED: Z-GUARD PASTE TP PRN (13:35)
[2018-07-05] MEDS ORDERED: Z-GUARD PASTE TP SCH (13:46)
[2018-07-05] MEDS: FOAM DRESSING TP SCH (14:14)
[2018-07-05] MEDS ORDERED: PHENYLEPHRINE 10 MG/ML VIAL IV PRN (15:05)
[2018-07-05] MEDS ORDERED: SODIUM BICARBONATE 8.4% PFS 50 MEQ/50 ML SYR IVP PRN (15:38)
[2018-07-05] MEDS ORDERED: KCL 20 MEQ/WATER INJ PREMIX 200 ML IV PRN (15:55)
[2018-07-05] MEDS: EPINEPHrine 1:1000 6 MG in DEXTROSE 5% 250 ML IV PRN (16:13)
[2018-07-05] MEDS ORDERED: POTASSIUM CHLORIDE 40 MEQ in NACL 0.9% 1,000 ML IV SCH (16:16)
[2018-07-05] MEDS: NOREPINEPHRINE 16 MG in DEXTROSE 5% 250 ML IV PRN (16:19)
[2018-07-05 16:49] LABS: ANION GAP 32.1 (8-16); CREATININE 1.6 mg/dL (0.6-1.3); POTASSIUM 3.6 mmol/L (3.5-5.1)
[2018-07-05 17:00] LABS: CARBON DIOXIDE 7.5 mmol/L (21-32)
[2018-07-05] MEDS: SODIUM BICARBONATE 8.4% 200 MEQ in DEXTROSE 5% 1,000 ML IV SCH (17:09)
[2018-07-05] MEDS: PHENYLEPHRINE 40 MG in NACL 0.9% 250 ML IV PRN ×2 (17:13→20:58)
[2018-07-05] MEDS ORDERED: ALBUMIN HUMAN 25% 100 ML IV SCH (19:10)
[2018-07-05] MEDS: VASOPRESSIN 20 UNITS in NACL 0.9% 250 ML IV SCH (19:35)
[2018-07-05 21:14] LABS: ALBUMIN 0.5 g/dL (3.4-5.0); ANION GAP 32.6 (8-16); CARBON DIOXIDE 10.9 mmol/L (21-32); CREATININE 1.6 mg/dL (0.6-1.3); POTASSIUM 3.5 mmol/L (3.5-5.1); TOTAL BILIRUBIN 0.8 mg/dL (0.0-1.0)
[2018-07-05] MEDS: MEROPENEM 500 MG in NACL 0.9% 50 ML IV SCH (21:47)
[2018-07-05] MEDS ORDERED: CALCIUM CHLORIDE IV ONE (22:00)
[2018-07-05] MEDS ORDERED: NACL 0.9% IV ONE (22:00)
[2018-07-05] MEDS ORDERED: LINEZOLID 600MG PREMIX 300 ML IV SCH (23:15)
[2018-07-06] VITALS (61 sets, daily range): BP systolic 26–168; BP diastolic 17–94
[2018-07-06 00:28] LABS: CARBON DIOXIDE 12.9 mmol/L (21-32); CREATININE 1.8 mg/dL (0.6-1.3)
[2018-07-06 00:31] LABS: POTASSIUM 2.9 mmol/L (3.5-5.1)
[2018-07-06] MEDS: PHENYLEPHRINE 40 MG in NACL 0.9% 250 ML IV PRN ×4 (01:50→16:48)
[2018-07-06] MEDS: NOREPINEPHRINE 16 MG in DEXTROSE 5% 250 ML IV PRN (01:52)
[2018-07-06] MEDS: EPINEPHrine 1:1000 6 MG in DEXTROSE 5% 250 ML IV PRN ×2 (03:15→15:08)
[2018-07-06] MEDS: VASOPRESSIN 20 UNITS in NACL 0.9% 250 ML IV SCH ×2 (04:26→13:51)
[2018-07-06] MEDS: PIPER/TAZO 3.375GM/D5W PREMIX 50 ML IV SCH ×2 (04:26→13:18)
[2018-07-06] MEDS: SODIUM BICARBONATE 8.4% 200 MEQ in DEXTROSE 5% 1,000 ML IV SCH ×2 (04:27→16:00)
[2018-07-06] MEDS: HYDROCORTISONE NA SUCC 100 MG/2 ML VIAL IV SCH ×2 (04:31→13:18)
[2018-07-06 06:09] LABS: MEAN CORPUSCULAR HEMOGLOBIN 34 pg (27-31); MEAN CORPUSCULAR HGB CONC 31 g/dL (33-37); MEAN CORPUSCULAR VOLUME 108.6 fL (80-94); RED BLOOD CELL COUNT(AUTO) 1.48 MIL/uL (4.20-5.40); RED CELL DISTRIBUTION WIDTH 18.8 % (11.6-13.7)
[2018-07-06] MEDS: BLOOD GLUCOSE MONITORING 1 DEV DEV FS SCH ×3 (06:35→15:55)
[2018-07-06] MEDS: DEXTROSE 50% 50 ML SYR IVP PRN ×2 (06:37→15:38)
[2018-07-06] MEDS ORDERED: DEXTROSE 50% 50 ML SYR IVP ONE (06:41)
[2018-07-06 07:08] LABS: ALBUMIN 1.2 g/dL (3.4-5.0); CREATININE 1.7 mg/dL (0.6-1.3); POTASSIUM 4.4 mmol/L (3.5-5.1); TOTAL BILIRUBIN 1.3 mg/dL (0.0-1.0)
[2018-07-06 07:23] LABS: ANION GAP 38.5 (8-16); CARBON DIOXIDE 8.9 mmol/L (21-32)
[2018-07-06 07:29] LABS: HEMATOCRIT 16.1 % (36-48); PLATELET COUNT (AUTO) 6 K/uL (140-450)
[2018-07-06 07:33] LABS: LYMPHOCYTES % (MANUAL) 11 % (20-46); MONOCYTES % (MANUAL) 3 % (5-12)
[2018-07-06] MEDS: WOUND CARE PREPARATION 178 ML SPR TP SCH (08:10)
[2018-07-06] MEDS: LACTULOSE 20 GM/30 ML UDC PO SCH (08:10)
[2018-07-06] MEDS: MEROPENEM 500 MG in NACL 0.9% 50 ML IV SCH (08:10)
[2018-07-06] MEDS ORDERED: LINEZOLID 600MG PREMIX 300 ML IV SCH (09:00)
[2018-07-06 09:36] LABS: ANION GAP 40.8 (8-16); CREATININE 1.8 mg/dL (0.6-1.3); POTASSIUM 4.3 mmol/L (3.5-5.1)
[2018-07-06 09:38] LABS: CARBON DIOXIDE 7.5 mmol/L (21-32)
[2018-07-06] MEDS ORDERED: MORPHINE SULFATE 50 MG in NACL 0.9% 45 ML IV PRN (10:55)
[2018-07-06] MEDS ORDERED: VANCOMYCIN 500 MG in DEXTROSE 5% 100 ML IV SCH (11:00)
[2018-07-06] MEDS ORDERED: MORPHINE SULFATE 50 MG in NACL 0.9% 45 ML IV SCH (12:30)
[2018-07-06] MEDS ORDERED: Z-GUARD PASTE TP SCH (13:00)
[2018-07-06] MEDS: FOAM DRESSING TP SCH (13:19)
[2018-07-06 17:05] LABS: ANION GAP 45.6 (8-16); CREATININE 1.8 mg/dL (0.6-1.3); POTASSIUM 5.2 mmol/L (3.5-5.1)
[2018-07-06 17:12] LABS: CARBON DIOXIDE 5.6 mmol/L (21-32)
[2018-07-06] MEDS ORDERED: CALCIUM GLUCONATE 10% 1,000 MG in NACL 0.9% 100 ML IV ONE (17:20)
[2018-07-06] MEDS ORDERED: SODIUM BICARBONATE 8.4% PFS 50 MEQ/50 ML SYR IVP SCH (17:35)
== END 2018-07-06 21:01 | disposition expired | DRG 720 ==
LOC: MED 12:49 → EDBEDREQSVC 15:28 → MIC 16:26
PROVIDERS: ADMIT Hospitalist; ATTEND Hospitalist
PROC: 02HV33Z Insertion of Infusion Device into Superior Vena Cava, Percutaneous Approach (ICD-10-PCS; principal; 2018-07-04)
PROC: 5A09357 Assistance with Respiratory Ventilation, Less than 24 Consecutive Hours, Continuous Positive Airway Pressure (ICD-10-PCS; 2018-07-04)
PROC: B548ZZA Ultrasonography of Superior Vena Cava, Guidance (ICD-10-PCS; 2018-07-04)
PROC: 5A1935Z Respiratory Ventilation, Less than 24 Consecutive Hours (ICD-10-PCS; 2018-07-05)
PROC: 0BH17EZ Insertion of Endotracheal Airway into Trachea, Via Natural or Artificial Opening (ICD-10-PCS; 2018-07-05)
PROC: 30233N1 Transfusion of Nonautologous Red Blood Cells into Peripheral Vein, Percutaneous Approach (ICD-10-PCS; 2018-07-06)
DX: A41.9 Sepsis, unspecified organism (principal); N17.0 Acute kidney failure with tubular necrosis; J96.01 Acute respiratory failure with hypoxia; R65.21 Severe sepsis with septic shock; D61.818 Other pancytopenia; E11.649 Type 2 diabetes mellitus with hypoglycemia without coma; D68.9 Coagulation defect, unspecified; I46.9 Cardiac arrest, cause unspecified; G93.41 Metabolic encephalopathy; E87.70 Fluid overload, unspecified; B96.89 Other specified bacterial agents as the cause of diseases classified elsewhere; I10 Essential (primary) hypertension; K21.9 Gastro-esophageal reflux disease without esophagitis; K72.90 Hepatic failure, unspecified without coma; E87.6 Hypokalemia; E86.0 Dehydration; K74.60 Unspecified cirrhosis of liver; Z86.14 Personal history of Methicillin resistant Staphylococcus aureus infection; Z87.891 Personal history of nicotine dependence; Z98.84 Bariatric surgery status; Z79.4 Long term (current) use of insulin; Z79.899 Other long term (current) drug therapy; G93.1 Anoxic brain damage, not elsewhere classified
CPT/HCPCS: 36415; 36600; 51702; 70450; 71045; 74018; 76700; 80048; 80053; 81003; 82140; 82803; 82948; 83605; 83690; 83735; 83880; 84100; 84484; 85025; 85610; 86886; 86900; 86901; 86920; 87040; 87081; 87086; 87186; 93005; 94002; 94003; 94660; 99291; C1751; J0171; J0610; J1580; J1610; J1644; J1720; J2020; J2185; J2270; J2310; J2370; J2543; J3370; J3475; J3480; J3490; J7030; J7042; J7060; P9016; P9046; Q0092